=== PATIENT | male | born 1960 | race American Indian/Alaskan Native ===

== ENCOUNTER 2019-03-28 04:40 | Emergency (ER) | payer SELFPAY ==
[2019-03-28 05:26] VITALS: BP 142/95
[2019-03-28 05:41] LABS: Hematocrit 40.6 % (35.5-45.6); Hemoglobin 13.5 gm/dl (11.8-15.2); Mean Corpuscular HGB Conc 33 % (32-34); Mean Corpuscular Volume 94 fl (84-94); Platelet Count 214 K/mm3 (140-440); Red Blood Count 4.32 M/mm3 (3.65-5.03); Red Cell Distribution Width 15.3 % (13.2-15.2)
[2019-03-28 06:02] LABS: BUN/Creatinine Ratio 15; Blood Urea Nitrogen 12 mg/dL (9-20); Calcium 9.3 mg/dL (8.4-10.2); Hemolysis Index 12
[2019-03-28 06:16] LABS: INR 0.99 (0.87-1.13)
[2019-03-28 06:17] LABS: Partial Thromboplastin Time 29.3 Sec. (24.2-36.6)
--- NOTE | 2019-03-28 06:43 | XRay Report ---
CHEST 1 VIEW INDICATION / CLINICAL INFORMATION: tachycardia. COMPARISON: None available. FINDINGS: SUPPORT DEVICES: None. HEART / MEDIASTINUM: No significant abnormality. LUNGS / PLEURA: No significant pulmonary or pleural abnormality. No pneumothorax. ADDITIONAL FINDINGS: No significant additional findings. IMPRESSION: 1. No significant change Signer Name: Yuval Chang MD Signed: 03/28/2019 6:38 AM Workstation Name: [id number]
--- NOTE | 2019-03-28 06:59 | Cat Scan Report ---
Head CT without intravenous contrast INDICATION: Altered mental COMPARISON: None FINDINGS: There is mild to moderate panventricular enlargement. No hemorrhage or extra-axial fluid co llection. No edema or mass effect. 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 Portions of the sinu ses visualized are clear. No skull fracture identified. IMPRESSION: Negative head CT Automated exposure control was utilized to diminish radiation dose Signer Name: Yuval Chang MD Signed: 03/28/2019 6:55 AM Workstation Name: [id number]
[2019-03-28] MEDS ORDERED: levETIRAcetam 500 MG TAB PO ONE (07:43)
--- NOTE | 2019-03-28 08:37 | Emergency Department Report ---
ED General Adult HPI - General Chief complaint: Seizure Stated complaint: SEIZURE Time Seen by Provider: 03/28/19 06:24 Source: patient, EMS Mode of arrival: Stretcher Limitations: Physical Limitation - History of Present Illness Initial comments: This is a 58-year-old man with a history of seizure disorder. He admits to noncompliance with his seizure medicine. He also stated that he drank a bottle of beer last night as per the triage note. The overnight doctor ordered a CT of his head and a chest x-ray. He is still postictal. However he can deny any specific injury to be and follow simple commands. He has no specific complaint at the time of my encounter. -: Gradual - Related Data Previous Rx's Medication Instructions Recorded Last Taken Type levETIRAcetam [Keppra TAB] 500 mg PO BID #60 tablet 03/28/19 Unknown Rx Allergies Allergy/AdvReac Type Severity Reaction Status Date / Time No Known Allergies Allergy Unverified 03/28/19 05:15 ED Review of Systems ROS: Stated complaint: SEIZURE Other details as noted in HPI Comment: Unobtainable due to pts medical conditions (largely, the patient does not report injury) ED Past Medical Hx - Past Medical History Previous Medical History?: Yes Hx Seizures: Yes - Surgical History Past Surgical History?: Yes Additional Surgical History: abdominal sx - Social History Smoking Status: Current Every Day Smoker Substance Use Type: Alcohol - Medications Home Medications: Home Medications Medication Instructions Recorded Confirmed Last Taken Type levETIRAcetam [Keppra TAB] 500 mg PO BID #60 tablet 03/28/19 Unknown Rx ED Physical Exam - General Limitations: Altered Mental Status (postictal) General appearance: alert, in no apparent distress - Head Head exam: Present: atraumatic, normocephalic - Eye Eye exam: Present: normal appearance, PERRL, EOMI. Absent: scleral icterus - ENT ENT exam: Present: mucous membranes moist, other (chronic tongue scarring) - Neck Neck exam: Present: normal inspection. Absent: tenderness, meningismus - Respiratory Respiratory exam: Present: normal lung sounds bilaterally. Absent: respiratory distress - Cardiovascular Cardiovascular Exam: Present: regular rate, normal rhythm. Absent: systolic murmur, diastolic murmur, rubs, gallop - GI/Abdominal GI/Abdominal exam: Present: soft, normal bowel sounds. Absent: distended, tenderness, guarding, rebound, rigid - Rectal Rectal exam: Present: deferred - Extremities Exam Extremities exam: Present: normal inspection - Back Exam Back exam: Present: normal inspection - Neurological Exam Neurological exam: Present: alert, CN II-XII intact (as testable). Absent: oriented X3 (cannot specifically state location), motor sensory deficit - Psychiatric Psychiatric exam: Present: normal mood, flat affect - Skin Skin exam: Present: warm, dry, intact, normal color. Absent: rash ED Course Vital Signs 03/28/19 03/28/19 05:12 05:31 Temperature 98.3 F Pulse Rate 89 Respiratory 16 18 Rate Blood Pressure 142/95 [Right] O2 Sat by Pulse 98 98 Oximetry - Reevaluation(s) Reevaluation #1: The patient states "coal somebody to come and get me". He is appropriate for discharge. 03/28/19 09:55 ED Medical Decision Making - Lab Data Result diagrams: 03/28/19 05:18 03/28/19 05:18 Laboratory Results - last 24 hr 03/28/19 03/28/19 03/28/19 05:18 05:18 05:46 WBC 3.7 L RBC 4.32 Hgb 13.5 Hct 40.6 MCV 94 MCH 31 MCHC 33 RDW 15.3 H Plt Count 214 PT 13.2 INR 0.99 APTT 29.3 Sodium 137 Potassium 4.1 Chloride 96.7 L Carbon Dioxide 24 Anion Gap 20 BUN 12 Creatinine 0.8 Estimated GFR > 60 BUN/Creatinine Ratio 15 Glucose 95 POC Glucose Calcium 9.3 Troponin T Plasma/Serum Alcohol 03/28/19 03/28/19 03/28/19 05:46 05:46 05:57 WBC RBC Hgb Hct MCV MCH MCHC RDW Plt Count PT INR APTT Sodium Potassium Chloride Carbon Dioxide Anion Gap BUN Creatinine Estimated GFR BUN/Creatinine Ratio Glucose POC Glucose 96 Calcium Troponin T < 0.010 Plasma/Serum Alcohol < 0.01 - Radiology Data Radiology results: report reviewed (process chest x-ray or CT head), image reviewed Critical care attestation.: If time is entered above; I have spent that time in minutes in the direct care of this critically ill patient, excluding procedure time. ED Disposition Clinical Impression: Seizure, Seizure disorder Disposition: DC-01 TO HOME OR SELFCARE Is pt being admited?: No Does the pt Need Aspirin: No Condition: Stable Instructions: Recurrent Seizures Adult (ED) Additional Instructions: Follow-up in the primary care setting. I have also given U the name of a neurologist. It is essential that you take your seizure medicine. Do not driv miguel. Prescriptions: levETIRAcetam [Keppra TAB] 500 mg PO BID #60 tablet Referrals: KAVITHA JIANG MD [Staff Physician] - 3-5 Days [facility] [Provider Group] - 3-5 Days Time of Disposition: 09:57
== END 2019-03-28 11:53 | disposition home or self-care (01) ==
LOC: ED 04:40
DX: G40.909 Epilepsy, unspecified, not intractable, without status epilepticus (principal); F17.200 Nicotine dependence, unspecified, uncomplicated
CPT/HCPCS: 36415; 70450; 71045; 80048; 80320; 82962; 84484; 85027; 85610; 85730; 93005; 93010; G0480

== ENCOUNTER 2019-04-04 20:49 | Emergency (ER) | payer SELFPAY ==
--- NOTE | 2019-04-04 21:53 | Event Note ---
ED Screening Note Date of service: 04/04/19 Time: 21:51 ED Screening Note: 58 y o darell brought in by EMS cc of generalized pain stating he normally goes [place] He is a poor historian and not responding to answering questions when prompted states he walks with a walker normally no acute distress noted This initial assessment/diagnostic orders/clinical plan/treatment(s) is/are subject to change based on patients health status, clinical progression and re-assessment by fellow clinical providers in the ED. Further treatment and workup at subsequent clinical providers discretion. Patient/guardian urged not to elope from the ED as their condition may be serious if not clinically assessed and managed. Initial orders include:
--- NOTE | 2019-04-04 22:41 | Emergency Department Report ---
Chief Complaint: Pain General Stated Complaint: BODY PAIN Time Seen by Provider: 04/04/19 22:22 - HPI History of Present Illness: 58 y ann lozoya brought in by EMS cc of generalized pain stating [place] [email or web address] [place] He is a poor historian and not responding to answering questions when prompted states he walks with a walker normally no acute distress noted - Exam Vital Signs: Vital Signs 04/04/19 20:53 Temperature 97.8 F Pulse Rate 86 Respiratory 18 Rate Blood Pressure 132/95 O2 Sat by Pulse 93 Oximetry Physical Exam: Gen: alert oriented NAD Cardic: regular rate and rhythm no murmurs appreciated Resp: Clear to auscultation bilateral no wheezing no rales or rhonchi. Abdomen: Soft nontender nondistended normal bowel sounds. MSE screening note: Focused history and physical exam performed. Due to findings the following was ordered: Emleina y ann lozoya brought in by EMS cc of generalized pain stating [place] He is a poor historian and not responding to answering questions when prompted states he walks with a walker normally no acute distress noted Discussed the patient he can follow-up back at [place]. Patient can take [id number] Tylenol as needed for pain management. ED Disposition for MSE Clinical Impression: Chronic pain Disposition: DC-01 TO HOME OR SELFCARE Is pt being admited?: No Does the pt Need Aspirin: No Condition: Stable Additional Instructions: Please take [id number] Tylenol for pain management. Follow back up which he [place] providers. Referrals: [facility] [Outside] - 3-5 Days
[2019-04-05 00:04] VITALS: BP 115/79
== END 2019-04-04 23:35 | disposition home or self-care (01) ==
LOC: ED 20:49
DX: G89.29 Other chronic pain (principal)

== ENCOUNTER 2021-10-07 11:14 | Inpatient (IN) | payer SELFPAY ==
[2021-10-07] MEDS ORDERED: ALBUTEROL 2.5 MG/3 ML NEBU IH ONE (11:39)
[2021-10-07] MEDS ORDERED: SODIUM CHLORIDE 0.9% 500 ML 500 ML IV ONE (11:41)
[2021-10-07] MEDS ORDERED: levETIRAcetam 1000 MG/NS 0.75% 1,000 MG/100 ML BAG IV ONE (11:41)
--- NOTE | 2021-10-07 11:41 | Emergency Department Report ---
ED General Adult HPI - General Chief complaint: Weakness Stated complaint: RT LOWER /PAIN AND SWELLING Time Seen by Provider: 10/07/21 11:29 Source: patient, EMS (Verbal report received from emergency medical services. EMS documentation not available at time of chart dictation ), RN notes reviewed, old records reviewed Mode of arrival: Stretcher Limitations: Altered Mental Status, Physical Limitation - History of Present Illness Initial comments: The patient was evaluated in the emergency department for symptoms described in the history of present illness. He/she was evaluated in the context of the global COVID-19 pandemic, which necessitated consideration that the patient might be at risk for infection with the virus that causes COVID-19. In stitutional protocols and algorithms that pertain to the evaluation of patients at risk for COVID-19 are in a state of rapid change based on information released by regulatory bodies including the CDC and federal and state organizations. These policies and algorithms were followed during the patient's care in the emergency department. Please note that these policies, procedures and recommendations changed on a rapid basis. This is a 61-year-old gentleman. He is brought to the hospital by emergency medical services. The patient is confused, and history mostly obtained from EMS. The patient complains of right lower extremity pain, swelling, and discoloration after blunt trauma/fall approximately 3 to 4 weeks ago. He reports that he was seen at another hospital for this injury. He reports that he lives at home with his sister. He denies headache, neck pain, chest pain, abdominal pain or shortness of breath. He is somewhat confused; he believes that it is 2020 and does not know who the president is. EMS reported normal vital signs in the field, but they did not obtain an Accu-Chek. The patient indicates he has sharp right lower extremity pain, which increases with palpation and range of motion and decreases with rest. Does not radiate anywhere. He does report that he feels like the pain is so intense that his leg will give out on him when ambulating. -: days(s), week(s) Location: right, lower extremity Consistency: other Improves with: other Worsens with: other - Related Data Previous Rx's Medication Instructions Recorded Last Taken Type levETIRAcetam [Keppra TAB] 500 mg PO BID #60 tablet 03/28/19 Unknown Rx Allergies Allergy/AdvReac Type Severity Reaction Status Date / Time No Known Allergies Allergy Unverified 03/28/19 05:15 ED Review of Systems ROS: Stated complaint: RT LOWER /PAIN AND SWELLING Other details as noted in HPI Constitutional: malaise, weakness. denies: fever Eyes: denies: vision change ENT: denies: epistaxis Respiratory: denies: cough Cardiovascular: denies: chest pain Gastrointestinal: denies: abdominal pain Genitourinary: denies: dysuria Musculoskeletal: joint swelling, arthralgia, myalgia Neurological: weakness, confusion ED Past Medical Hx - Past Medical History Hx Seizures: Yes Additional medical history: Chronic Pain - Surgical History Past Surgical History?: No Additional Surgical History: abdominal sx - Social History Smoking Status: Current Every Day Smoker Substance Use Type: None - Medications Home Medications: Home Medications Medication Instructions Recorded Confirmed Last Taken Type levETIRAcetam [Keppra TAB] 500 mg PO BID #60 tablet 03/28/19 Unknown Rx ED Physical Exam - General Limitations: Altered Mental Status, Physical Limitation General appearance: in no apparent distress, anxious - Head Head exam: Present: atraumatic, normocephalic - Eye Eye exam: Present: normal appearance, EOMI, other (Visual acuity is intact to finger counting in color perception at a close distance). Absent: nystagmus - ENT ENT exam: Present: normal orophraynx, mucous membranes dry, normal external ear exam - Neck Neck exam: Present: normal inspection, full ROM. Absent: tenderness, meningismus - Respiratory Respiratory exam: Present: respiratory distress, rhonchi. Absent: rales, decreased breath sounds - Cardiovascular Cardiovascular Exam: Present: regular rate, normal rhythm, normal heart sounds. Absent: bradycardia, tachycardia, irregular rhythm, systolic murmur, diastolic murmur, rubs, gallop - GI/Abdominal GI/Abdominal exam: Present: soft. Absent: distended, tenderness, guarding, rebound, rigid, pulsatile mass - Rectal Rectal exam: Present: deferred - Extremities Exam Extremities exam: Present: full ROM, tenderness (The right ankle is tender, and there is skin wound, on the lateral aspect of the malleolus, with possible necrotic tissue. There is no streaking.), pedal edema, other (2+ pulses noted in the bilateral upper and lower extremities. The r bilateral upper extremities and left lower extremity are nontender. The pelvis is stable). Absent: normal inspection, calf tenderness - Back Exam Back exam: Present: normal inspection. Absent: tenderness, CVA tenderness (R), CVA tenderness (L), paraspinal tenderness, vertebral tenderness - Neurological Exam Neurological exam: Present: altered (The patient is awake and alert to name and location. He does not know the year. He does not know the president.), other (There is no facial droop. The tongue is midline. EOMI. 5/5 strength in 4 extremities, sensation is intact to light touch in 4 extremities) - Psychiatric Psychiatric exam: Present: flat affect - Skin Skin exam: Present: warm, other (On the right anterior and lateral lower extremity, there is a wound that is approximately 10 cm x 5 cm. There is dry tissue, without redness, pus or streaking.) ED Course Vital Signs 10/07/21 10/07/21 10/07/21 11:22 11:42 12:16 Temperature 98 F Pulse Rate 100 H Pulse Rate [ Anterior Bilateral Throughout] Respiratory 18 Rate Respiratory Rate [Anterior Bilateral Throughout] Blood Pressure 120/86 [Left] O2 Sat by Pulse 100 100 Oximetry 10/07/21 10/07/21 13:34 13:49 Temperature Pulse Rate 61 Pulse Rate [ 81 Anterior Bilateral Throughout] Respiratory 16 Rate Respiratory 17 Rate [Anterior Bilateral Throughout] Blood Pressure 147/89 [Left] O2 Sat by Pulse 96 Oximetry - Reevaluation(s) Reevaluation #1: 10/07/21 12:49 Differential diagnosis, include but not limited to: Fracture, dislocation, arthritis, osteomyelitis, myositis, pneumonia, UTI, seizure, electrolyte derang ement, thyroid derangement, toxic metabolic encephalopathy Assessment and plan: 61-year-old gentleman, with reassuring vital signs and a nonfocal motor examination who appears mildly confused, with a right lower extremity wound. Obtain CT scan of the brain, CT scan of the right lower extremity, x-ray of the chest, and appropriate laboratory studies. Start albuterol for rhonchi. He is not hypoxic at this time. He is afebrile at this time. Reassess after diagnostics have resulted. Please note that phlebotomy team is unable to obtain laboratory studies on this patient, they are having a second population health coach come by to attempt acquisition of laboratory studies, this has delayed appropriate diagnostics, disposition and throughput. Called [facility] to discuss with their orthopedics team, as EMS reported to myself that this patient is known to [facility]. However, I am not able to obtain orthope dic consultation from [facility] as they report that they are only consulting on acute lopez, traumas, and strokes. Have then reached out to [facility], have discussed with their orthopedist, and they advised that they are not able to provide orthopedic consultation, as they are not able to accept any transfers from outside facilities as they are at capacity we advised that we are only seeking phone to phone consultation at this time, but they advise on the transfer line they are not able to provide phone consultation IV access is established by the nursing team 10/07/21 14:40 CT scan of the brain is negative for acute findings. CT scan of the right lower extremity suggests cellulitis and possible osteomyelitis. Chronic fractures are appreciated. There has been interval removal of orthopedic hardware as per CT scan report. Contacted general surgery on-call, Dr. Pool. Discussed the patient's history, physical, laboratory studies and imaging studies and clinical impression. Gener al surgery will follow in consultation. Patient will require work-up and evaluation for cellulitis and osteomyelitis. Patient appears to have an infected wound. Orthopedic issues appear to be chronic. Hospital physician, Dr Ana M Capone to admit to [facility] Have also ordered a splint 10/07/21 15:04 Patient agitated, trying to leave. The patient does not have decision-making capacity. He is placed on a hold. He is medicated with haloperidol and Ativan 10/07/21 16:20 10/07/21 17:29 10/07/21 17:59 I discussed the patient's history, physical, laboratory studies and imaging studies and overall clinical impression with orthopedic physician on-call for [facility], Dr. Bloom. We are both in agreement that admission to our facility for medical optimization, antibiotics, evaluation by wound care would be reasonable, and we both agree that patient does not require emergent orthopedic consultation or intervention at this time. ED Medical Decision Making - Lab Data Result diagrams: 10/07/21 12:41 10/07/21 12:41 Vital Signs 10/07/21 10/07/21 10/07/21 11:22 11:42 12:16 Temperature 98 F Pulse Rate 100 H Respiratory 18 Rate Blood Pressure 120/86 [Left] O2 Sat by Pulse 100 100 Oximetry - EKG Data -: EKG Interpreted by Me EKG shows normal: sinus rhythm Rate: normal - EKG Data 10/07/21 12:44 The EKG is interpreted by myself at 11: 45 This is a sinus rhythm, 91 bpm. There is a left axis deviation, with a left anterior fascicular block. There are numerous T wave inversions and abnormalities. The TX intervals within normal limits. The QTC is 4 3 9 ms. There is motion artifact. This is an abnormal EKG. This is not a STEMI. 10/07/21 12:45 I am not able to access prior EKG images for comparison - Radiology Data Radiology results: pending, report reviewed, image reviewed CHEST 1 VIEW INDICATION / CLINICAL INFORMATION: ams with rhonchi STUDY TIME: 1145 COMPARISON: None available. FINDINGS: SUPPORT DEVICES: None HEART / MEDIASTINUM: No significant abnormality. LUNGS / PLEURA: Chronic appearing changes are seen bilaterally. No definite focal infiltrates are seen though stability of some of the interstitial markings is unknown. No pleural effusions noted. No pneumothorax. ADDITIONAL FINDINGS: Multiple old left rib fractures. Signer Name: Venkata Hogan MD Signed: 10/07/2021 10:57 AM Workstation Name: [id number] CT head without contrast INDICATION : Altered mental status. TECHNIQUE: Axial imaging performed from the skull apex through the skull base without the use of contrast. All CT examinations performed at this facility utilize dose modulation, iterative reconstruction or weight-based dosing, when appropriate, to reduce radiation dose to as low as reasonably achievable. The exam is significantly limited secondary to patient position and uncooperation as well as motion artifact. COMPARISON: 03/28/2019 FINDINGS: Severely limited exam. There is mild dilatation of the lateral ventricles however this is similar in appearance to 03/28/2019. There is mild diffuse cerebral atrophy. No definite acute intracranial hemorrhage is identified within the limits of the exam. The visualized paranasal sinuses are grossly clear. The orbits are grossly intact. The skull is grossly intact. IMPRESSION: Limited exam, as discussed above. No definite evidence of acute intracranial hemorrhage. Mildly dilated lateral ventricles are grossly unchanged from 03/28/2019. Signer Name: Remington Ledesma MD Signed: 10/07/2021 1:04 PM Workstation Name: [id number] [facility] [address] [id number] Cat Scan Report Signed Patient: OREN DANIELSON MR#: [id number] : 1960 Acct:[id number] Age/Sex: 61 / M ADM Date: 10/07/21 Loc: ED Attending Dr: Ordering Physician: KULDEEP RUGGIERO MD Date of Service: 10/07/21 Procedure(s): CT lower extremity RT wo con Accession Number(s): [id number] cc: KULDEEP RUGGIERO MD CT lower extremity RT wo con INDICATION / CLINICAL INFORMATION: right leg wound and pain. TECHNIQUE: CT right lower extremity without contrast All CT scans at this location are performed using CT dose reduction for ALARA by means of automated exposure control. COMPARISON: None available. FINDINGS: CT right foreleg: There is advanced tricompartmental degenerative changes of the visualized knee. There is been removal of an intramedullary alfredito and there appears to be intramedullary cement within the proximal tibial diaphysis. There is severe osteopenia of the entire right foreleg. There is residual alfredito identified within the intramedullary space of the left fibula. There is a subacute to chronic appearing comminuted fracture involving the distal tibial metaphysis with fracture margins at approximating the subcutaneous surface anteriorly. There is mixed periosteal reaction with some internal and external callus formation. A similar ununited fracture is identified within the distal left fibular metaphysis The soft tissues of the mid and distal foreleg demonstrates severe cellulitis and edema especially the anterior and lateral aspects of the distal foreleg. IMPRESSION: 1. Ununited comminuted and displaced fracture involving the distal tibial metaphysis as well as the distal most aspect of the fibula, as above. Evidence of removal of intramedullary tibial hardware. 2. Moderate to severe cellulitis involving the anterior lateral aspect of the distal foreleg near the site of fractures with evidence of an overlying wound along the lateral ankle/distal foreleg region. Underlying osteomyelitis along the fractures of the distal tibia and fibula cannot be excluded. Signer Name: Remington Ledesma MD Signed: 10/07/2021 2:01 PM Workstation Name: [id number] Transcribed By: Dictated By: Remington Ledesma MD Electronically Authenticated By: Remington Ledesma MD Signed Date/Time: 10/07/21 1401 DD/ 1356 [facility] [address] [place] [address] XRay Report Signed Patient: OREN DANIELSON MR#: [id number] : 1960 Acct:[id number] Age/Sex: 61 / M ADM Date: 10/07/21 Loc: ED Attending Dr: Ordering Physician: KULDEEP RUGGIERO MD Date of Service: 10/07/21 Procedure(s): XR tibia fibula 2V RT Accession Number(s): [id number] cc: KULDEEP RUGGIERO MD Fluoro Time In Minutes: Right foreleg 3 views INDICATION: Right foreleg pain IMPRESSION: Ununited displaced fracture involving the distal tibia and fibula. Evidence of removal of tibial hardware. Prominent soft tissue edema is identified anteriorly concerning for underlying cellulitis. Signer Name: Remington Ledesma MD Signed: 10/07/2021 3:35 PM Workstation Name: [id number] Transcribed By: BC Dictated By: Remington Ledesma MD Electronically Authenticated By: Remington Ledesma MD Signed Date/Time: 10/07/211534 DD/ 153 TD/TT: Critical care attestation.: If time is entered above; I have spent that time in minutes in the direct care of this critically ill patient, excluding procedure time. ED Disposition Clinical Impression: Acute encephalopathy, Wound of right leg, Falls Disposition: 09 ADMITTED INPATIENT Is pt being admited?: Yes Does the pt Need Aspirin: No Condition: Fair Referrals: PRIMARY CARE, [Primary Care Provider] - 3-5 Days
--- NOTE | 2021-10-07 12:02 | XRay Report ---
CHEST 1 VIEW INDICATION / CLINICAL INFORMATION: ams with rhonchi STUDY TIME: 1145 COMPARISON: None available. FINDINGS: SUPPORT DEVICES: None HEART / MEDIASTINUM: No significant abnormality. LUNGS / PLEURA: Chronic appearing changes are seen bilaterally. No definite focal infiltrates are see n though stability of some of the interstitial markings is unknown. No pleural effusions noted. No pn eumothorax. ADDITIONAL FINDINGS: Multiple old left rib fractures. Signer Name: Venkata Hogan MD Signed: 10/07/2021 11:57 AM Workstation Name: [id number]
[2021-10-07 13:18] LABS: INR 1.01 (0.87-1.13)
[2021-10-07 13:20] LABS: Basophils # (Auto) 0.1 K/mm3 (0.0-0.1); Basophils % (Auto) 0.9 % (0.0-1.8); Eosinophils % (Auto) 0.8 % (0.0-4.3); Hematocrit 31.9 % (35.5-45.6); Hemoglobin 9.8 gm/dl (11.8-15.2); Lymphocytes # (Auto) 1.8 K/mm3 (1.2-5.4); Lymphocytes % (Auto) 30.2 % (13.4-35.0); Mean Corpuscular HGB Conc 31 % (32-34); Mean Corpuscular Volume 76 fl (84-94); Monocytes % (Auto) 15.7 % (0.0-7.3); Platelet Count 333 K/mm3 (140-440); Red Blood Count 4.23 M/mm3 (3.65-5.03)
[2021-10-07 13:24] LABS: Red Cell Distribution Width 21.9 % (13.2-15.2)
[2021-10-07 13:39] LABS: Alanine Aminotransferase 10 units/L (7-56); Albumin 4.1 g/dL (3.9-5); BUN/Creatinine Ratio 23; Blood Urea Nitrogen 18 mg/dL (9-20); Calcium 9.8 mg/dL (8.4-10.2); Hemolysis Index 0
[2021-10-07] MEDS ORDERED: SODIUM CHLORIDE 0.9% 1000 ML 1,000 ML IV ONE (13:40)
[2021-10-07 13:44] LABS: Erythrocyte Sedimentation Rate 44 mm/Hr (0-20)
--- NOTE | 2021-10-07 14:06 | Cat Scan Report ---
CT lower extremity RT wo con INDICATION / CLINICAL INFORMATION: right leg wound and pain. TECHNIQUE: CT right lower extremity without contrast All CT scans at this location are performed using CT dose r eduction for MARY by means of automated exposure control. COMPARISON: None available. FINDINGS: CT right foreleg: There is advanced tricompartmental degenerative changes of the visualized knee. There is been removal of an intramedullary alfredito and there appears to be intramedullary cement within the proximal tibial di aphysis. There is severe osteopenia of the entire right foreleg. There is residual alfredito identified wit hin the intramedullary space of the left fibula. There is a subacute to chronic appearing comminuted fracture involving the distal tibial metaphysis with fracture margins at approximating the subcutaneo us surface anteriorly. There is mixed periosteal reaction with some internal and external callus form ation. A similar ununited fracture is identified within the distal left fibular metaphysis The soft tissues of the mid and distal foreleg demonstrates severe cellulitis and edema especially th e anterior and lateral aspects of the distal foreleg. IMPRESSION: 1. Ununited comminuted and displaced fracture involving the distal tibial metaphysis as well as the d istal most aspect of the fibula, as above. Evidence of removal of intramedullary tibial hardware. 2. Moderate to severe cellulitis involving the anterior lateral aspect of the distal foreleg near the site of fractures with evidence of an overlying wound along the lateral ankle/distal foreleg region. Underlying osteomyelitis along the fractures of the distal tibia and fibula cannot be excluded. Signer Name: Remington Ledesma MD Signed: 10/07/2021 2:01 PM Workstation Name: [id number]
--- NOTE | 2021-10-07 14:08 | Cat Scan Report ---
CT head without contrast INDICATION : Altered mental status. TECHNIQUE: Axial imaging performed from the skull apex through the skull base without the use of con trast. All CT examinations performed at this facility utilize dose modulation, iterative reconstruct ion or weight-based dosing, when appropriate, to reduce radiation dose to as low as reasonably achiev able. The exam is significantly limited secondary to patient position and uncooperation as well as mo tion artifact. COMPARISON: 03/28/2019 FINDINGS: Severely limited exam. There is mild dilatation of the lateral ventricles however this is s imilar in appearance to 03/28/2019. There is mild diffuse cerebral atrophy. No definite acute intracr anial hemorrhage is identified within the limits of the exam. The visualized paranasal sinuses are gr ossly clear. The orbits are grossly intact. The skull is grossly intact. IMPRESSION: Limited exam, as discussed above. No definite evidence of acute intracranial hemorrhage. Mildly dilated lateral ventricles are grossly unchanged from 03/28/2019. Signer Name: Remington Ledesma MD Signed: 10/07/2021 2:04 PM Workstation Name: [email or web address]
[2021-10-07] MEDS ORDERED: fentaNYL 100 MCG/2 ML INJ IV ONE (14:19)
[2021-10-07] MEDS ORDERED: ceFAZolin/NS 1 GM/50 ML 1 GM/50 ML BAG IV ONE (14:19)
[2021-10-07 14:56] LABS: Bilirubin,Urine NEG (Negative); Blood,Urine LG (Negative); Color,Urine Yellow (Yellow); Protein,Urine <15 mg/dL mg/dL (Negative); Urobilinogen,Urine < 2.0 mg/dL (<2.0)
[2021-10-07] MEDS ORDERED: VANCOMYCIN 1,250 MG in SODIUM CHLORIDE 0.9% 500 ML 500 ML IV ONE (15:00)
[2021-10-07] MEDS: LORazepam 2 MG/ML VIAL IM PRN ×2 (15:10→19:35)
[2021-10-07] MEDS: HALOPERIDOL LACTATE 5 MG/1 ML INJ IM PRN (15:11)
[2021-10-07 15:20] LABS: Amphetamine Screen,Urine Negative; Benzodiazepines Screen,Urine Negative; Cannabinoid Screen,Urine Negative; Cocaine Screen,Urine Negative; Methadone Screen,Urine Negative; Opiate Screen,Urine Negative
--- NOTE | 2021-10-07 15:39 | XRay Report ---
Right foreleg 3 views INDICATION: Right foreleg pain IMPRESSION: Ununited displaced fracture involving the distal tibia and fibula. Evidence of removal of tibial hardware. Prominent soft tissue edema is identified anteriorly concerning for underlying cell ulitis. Signer Name: Remington Ledesma MD Signed: 10/07/2021 3:35 PM Workstation Name: [email or web address]
[2021-10-07 15:57] LABS: RBC,Urine < 1.0 /HPF (0.0-6.0)
--- NOTE | 2021-10-07 17:14 | Consultation ---
History of Present Illness Consult date: 10/07/21 Reason for consult: other (Right ankle and foot pain with no overlying chronic wound.) - History of present illness History of present illness: This is a 61-year-old gentleman. He is brought to the hospital by emergency medical services. The patient is confused, and history mostly obtained from the ER records and EMS. The patient complains of right lower extremity pain, swelling, and discoloration after blunt trauma/fall approximately 3 to 4 weeks ago. He reports that he was seen at another hospital ([facility]) for this injury. He reports that he lives at home with his sister. He denies headache, neck pain, chest pain, abdominal pain or shortness of breath. He is somewhat confused; he believes that it is 2020 and does not know who the president is. The patient indicates he has sharp right lower extremity pain, which increases with palpation and range of motion and decreases with rest. Does not radiate anywhere. He does report that he feels like the pain is so intense that his leg will give out on him when ambulating. Medications and Allergies Allergies Allergy/AdvReac Type Severity Reaction Status Date / Time No Known Allergies Allergy Unverified 03/28/19 05:15 Home Medications Medication Instructions Recorded Confirmed Last Taken Type levETIRAcetam [Keppra TAB] 500 mg PO BID #60 tablet 03/28/19 Unknown Rx Active Meds: Active Medications Haloperidol Lactate (Haloperidol Lactate 5 Mg/1 Ml Inj) 5 mg IM Q6HR PRN PRN Reason: Agitation Last Admin: 10/07/21 15:11 Dose: 5 mg Lorazepam (Lorazepam 2 Mg/Ml Vial) 2 mg IM Q4HR PRN PRN Reason: Agitation Last Admin: 10/07/21 15:10 Dose: 2 mg Exam Vital Signs Pulse Resp BP Pulse Ox 100 H 18 120/86 100 10/07/21 11:22 10/07/21 11:22 10/07/21 11:22 10/07/21 11:22 - General physical appearance Positive: other (Patient is heavily sedated unable to answer questions.) - Neck Positive: no masses, no bruits, trachea midline - Respiratory Positive: normal expansion - Cardiovascular Rhythm: regular - Extremities Extremities: abnormal (Marked angulation is noted just above the ankle. No crepitus is noted.) - Abdomen Abdomen: Present: soft. Absent: tender - Integumentary other (An open wound with overlying eschar and scab is present on the lateral aspect of the lower leg over the lateral malleolus. Depth of the wound is difficult to assess.) Results - Labs 10/07/21 12:41 10/07/21 12:41 Abnormal lab results 10/07/21 10/07/21 10/07/21 Range/Units 12:41 12:41 12:41 Hgb 9.8 L (11.8-15.2) gm/dl Hct 31.9 L (35.5-45.6) % MCV 76 L (84-94) fl MCH 23 L (28-32) pg MCHC 31 L (32-34) % RDW 21.9 H (13.2-15.2) % [place] % (Auto) 15.7 H (0.0-7.3) % [place] # (Auto) 1.0 H (0.0-0.8) K/mm3 Sodium 135 L (137-145) mmol/L Ammonia 19.0 L (25-60) umol/L Total Creatine Kinase (55-170) units/L Salicylates (2.8-20.0) mg/dL Acetaminophen (10.0-30.0) ug/mL 10/07/21 10/07/21 10/07/21 Range/Units 12:41 12:41 12:41 Hgb (11.8-15.2) gm/dl Hct (35.5-45.6) % MCV (84-94) fl MCH (28-32) pg MCHC (32-34) % RDW (13.2-15.2) % [place] % (Auto) (0.0-7.3) % [place] # (Auto) (0.0-0.8) K/mm3 Sodium (137-145) mmol/L Ammonia (25-60) umol/L Total Creatine Kinase 377 H (55-170) units/L Salicylates < 0.3 L (2.8-20.0) mg/dL Acetaminophen 5.0 L (10.0-30.0) ug/mL Diabetes panel 10/07/21 Range/Units 12:41 Sodium 135 L (137-145) mmol/L Potassium 4.4 (3.6-5.0) mmol/L Chloride 99.7 (98-107) mmol/L Carbon Dioxide 26 (22-30) mmol/L BUN 18 (9-20) mg/dL Creatinine 0.8 (0.8-1.3) mg/dL Glucose 88 (75-100) mg/dL Calcium 9.8 (8.4-10.2) mg/dL AST 15 (5-40) units/L ALT 10 (7-56) units/L Alkaline Phosphatase 81 (35-129) units/L Total Protein 8.1 (6.3-8.2) g/dL Albumin 4.1 (3.9-5) g/dL Thyroid panel 10/07/21 Range/Units 12:41 TSH 0.692 (0.270-4.200) mlU/mL Calcium panel 10/07/21 Range/Units 12:41 Calcium 9.8 (8.4-10.2) mg/dL Albumin 4.1 (3.9-5) g/dL Pituitary panel 10/07/21 10/07/21 Range/Units 12:41 12:41 Sodium 135 L (137-145) mmol/L Potassium 4.4 (3.6-5.0) mmol/L Chloride 99.7 (98-107) mmol/L Carbon Dioxide 26 (22-30) mmol/L BUN 18 (9-20) mg/dL Creatinine 0.8 (0.8-1.3) mg/dL Glucose 88 (75-100) mg/dL Calcium 9.8 (8.4-10.2) mg/dL TSH 0.692 (0.270-4.200) mlU/mL Adrenal panel 10/07/21 Range/Units 12:41 Sodium 135 L (137-145) mmol/L Potassium 4.4 (3.6-5.0) mmol/L Chloride 99.7 (98-107) mmol/L Carbon Dioxide 26 (22-30) mmol/L BUN 18 (9-20) mg/dL Creatinine 0.8 (0.8-1.3) mg/dL Glucose 88 (75-100) mg/dL Calcium 9.8 (8.4-10.2) mg/dL Total Bilirubin 0.30 (0.1-1.2) mg/dL AST 15 (5-40) units/L ALT 10 (7-56) units/L Alkaline Phosphatase 81 (35-129) units/L Total Protein 8.1 (6.3-8.2) g/dL Albumin 4.1 (3.9-5) g/dL Assessment and Plan This patient has definite changes to his distal fibula and tibia. Review of the x-ray shows there to be a comminuted fracture of the distal tibia and fibula definitely involving the mortise of the ankle. Difficult to discern if this is an open fracture but there is a definite chronic wound in the vicinity of the fracture. Posterior splint immobilization with Betadine soaked gauze for dressing at this time. Consult orthopedics when available. Try to obtain records from [facility] as soon as possible.
[2021-10-07] MEDS ORDERED: ONDANSETRON 4 MG/2 ML INJ IV PRN (19:26)
[2021-10-07] MEDS ORDERED: MORPHINE 2 MG/1 ML INJ IV PRN (19:26)
--- NOTE | 2021-10-07 19:49 | History and Physical Report ---
History of Present Illness Date of examination: 10/07/21 Date of admission: 10/07/2021 Chief complaint: Right ankle wound for 2 weeks History of present illness: 61-year-old man with history of seizures had a fall about 3 to 4 weeks ago. Patient went to [facility] for treatment of his injury to the right ankle. He had a right ankle ulcer. With treatment by other hospital with dressings and antibiotics. Patient's right ankle wound has been worsening and swelling increasing in the right foot and also of the ankle and distal to lower extremity. No radiation of the pain. Pain is about 8 on a scale of 1-10. No discharge. But dark appearing wound with pain. Low-grade fever present. Blunt trauma for which 3 to 4 weeks ago. Patient is somewhat confused. No exacerbating or relieving factors. Pain is sharp and intermittent in nature. - Past Medical History Hx Seizures: Yes Additional medical history: Chronic Pain - Surgical History Past Surgical History?: No Additional Surgical History: abdominal sx - Social History Smoking Status: Current Every Day Smoker Substance Use Type: None Family history Htn - Medications Home Medications: Home Medications Medication Instructions Recorded Confirmed Last Taken Type levETIRAcetam [Keppra TAB] 500 mg PO BID #60 tablet 03/28/19 Unknown Rx Review of systems ROS constitutional no weight loss or weight gain no fever or chills HEENT no sore throat no post nasal drip no diplopia Neck no neck stiffness no lymph gland enlargement Chest and lungs no shortness of breath cough or wheezing CVS no chest pain no diaphoresis no palpitations GI no nausea no vomiting no diarrhea Genitourinary system no dysuria no flank pain Musculoskeletal system no muscle pains no joint pains [employer] S[employer] no syncope no seizures Skin no rash no itching Psychiatric no depression no homicidal or suicidal tendencies Hematologic no lymphedema or bruising Endocrine no polydipsia no polyuria no cold intolerance no heat intolerance Medications and Allergies Allergies Allergy/AdvReac Type Severity Reaction Status Date / Time No Known Allergies Allergy Unverified 03/28/19 05:15 Home Medications Medication Instructions Recorded Confirmed Last Taken Type levETIRAcetam [Keppra TAB] 500 mg PO BID #60 tablet 03/28/19 Unknown Rx Active Meds: Active Medications Haloperidol Lactate (Haloperidol Lactate 5 Mg/1 Ml Inj) 5 mg IM Q6HR PRN PRN Reason: Agitation Last Admin: 10/07/21 15:11 Dose: 5 mg Lorazepam (Lorazepam 2 Mg/Ml Vial) 2 mg IM Q4HR PRN PRN Reason: Agitation Last Admin: 10/07/21 15:10 Dose: 2 mg Exam - Constitutional Vitals: Temp Pulse Resp BP Pulse Ox 98 F 81 17 147/89 96 10/07/21 12:16 10/07/21 13:49 10/07/21 13:49 10/07/21 13:34 10/07/21 13:34 General appearance: Present: no acute distress, well-nourished - EENT Eyes: Present: PERRL ENT: hearing intact, clear oral mucosa - Neck Neck: Present: supple, normal ROM - Respiratory Respiratory effort: normal Respiratory: bilateral: CTA - Cardiovascular Heart rate: 78 Rhythm: regular Heart Sounds: Present: S1 & S2. Absent: rub, click - Extremities Extremities: pulses symmetrical, No edema, abnormal (Right ankle wound 10 cm x 6 cm stage II-III no purulent discharge dark discoloration and surrounding swelling) Extremity abnormal: other ( present as above) Peripheral Pulses: within normal limits - Abdominal General gastrointestinal: Present: soft, non-tender, non-distended, normal bowel sounds Male genitourinary: Present: normal - Integumentary Integumentary: Present: clear, warm, dry - Musculoskeletal Musculoskeletal: strength equal bilaterally, other - Psychiatric Psychiatric: other (Alert but confused) - Neurologic Neurologic: CNII-XII intact, moves all extremities - Allied Health Allied health notes reviewed: nursing (Alert but confused), case management HEART Score - HEART Score Troponin: Troponin T < 0.010 ng/mL (0.00-0.029) 10/07/21 12:41 Results - Labs CBC & Chem 7: 10/07/21 12:41 10/07/21 12:41 Labs: Laboratory Last Values WBC 6.1 K/mm3 (4.5-11.0) 10/07/21 12:41 RBC 4.23 M/mm3 (3.65-5.03) 10/07/21 12:41 Hgb 9.8 gm/dl (11.8-15.2) L 10/07/21 12:41 Hct 31.9 % (35.5-45.6) L 10/07/21 12:41 MCV 76 fl (84-94) L 10/07/21 12:41 MCH 23 pg (28-32) L 10/07/21 12:41 MCHC 31 % (32-34) L 10/07/21 12:41 RDW 21.9 % (13.2-15.2) H 10/07/21 12:41 Plt Count 333 K/mm3 (140-440) 10/07/21 12:41 Lymph % (Auto) 30.2 % (13.4-35.0) 10/07/21 12:41 [place] % (Auto) 15.7 % (0.0-7.3) H 10/07/21 12:41 Eos % (Auto) 0.8 % (0.0-4.3) 10/07/21 12:41 Baso % (Auto) 0.9 % (0.0-1.8) 10/07/21 12:41 Lymph # (Auto) 1.8 K/mm3 (1.2-5.4) 10/07/21 12:41 [place] # (Auto) 1.0 K/mm3 (0.0-0.8) H 10/07/21 12:41 Eos # (Auto) 0.0 K/mm3 (0.0-0.4) 10/07/21 12:41 Baso # (Auto) 0.1 K/mm3 (0.0-0.1) 10/07/21 12:41 Seg Neutrophils % 52.4 % (40.0-70.0) 10/07/21 12:41 Seg Neutrophils # 3.2 K/mm3 (1.8-7.7) 10/07/21 12:41 ESR 44 mm/Hr (0-20) 10/07/21 12:41 PT 14.7 Sec. (12.2-14.9) 10/07/21 12:41 INR 1.01 (0.87-1.13) 10/07/21 12:41 APTT 35.0 Sec. (24.2-36.6) 10/07/21 12:41 Sodium 135 mmol/L (137-145) L 10/07/21 12:41 Potassium 4.4 mmol/L (3.6-5.0) 10/07/21 12:41 Chloride 99.7 mmol/L (98-107) 10/07/21 12:41 Carbon Dioxide 26 mmol/L (22-30) 10/07/21 12:41 Anion Gap 14 mmol/L 10/07/21 12:41 BUN 18 mg/dL (9-20) 10/07/21 12:41 Creatinine 0.8 mg/dL (0.8-1.3) 10/07/21 12:41 Estimated GFR > 60 ml/min 10/07/21 12:41 BUN/Creatinine Ratio 23 % 10/07/21 12:41 Glucose 88 mg/dL (75-100) 10/07/21 12:41 Lactic Acid 1.40 mmol/L (0.7-2.0) 10/07/21 12:41 Calcium 9.8 mg/dL (8.4-10.2) 10/07/21 12:41 Total Bilirubin 0.30 mg/dL (0.1-1.2) 10/07/21 12:41 AST 15 units/L (5-40) 10/07/21 12:41 ALT 10 units/L (7-56) 10/07/21 12:41 Alkaline Phosphatase 81 units/L (35-129) 10/07/21 12:41 Ammonia 19.0 umol/L (25-60) L 10/07/21 12:41 Total Creatine Kinase 377 units/L (55-170) H 10/07/21 12:41 Troponin T < 0.010 ng/mL (0.00-0.029) 10/07/21 12:41 C-Reactive Protein < 0.03 mg/dL (0.00-1.30) 10/07/21 12:41 Total Protein 8.1 g/dL (6.3-8.2) 10/07/21 12:41 Albumin 4.1 g/dL (3.9-5) 10/07/21 12:41 Albumin/Globulin Ratio 1.0 % 10/07/21 12:41 TSH 0.692 mlU/mL (0.270-4.200) 10/07/21 12:41 Urine Color Yellow (Yellow) 10/07/21 12:16 Urine Turbidity Clear (Clear) 10/07/21 12:16 Urine pH 6.0 (5.0-7.0) 10/07/21 12:16 Ur Specific [place] 1.018 (1.003-1.030) 10/07/21 12:16 Urine Protein <15 mg/dl mg/dL (Negative) 10/07/21 12:16 Urine Glucose (UA) Neg mg/dL (Negative) 10/07/21 12:16 Urine Ketones Neg mg/dL (Negative) 10/07/21 12:16 Urine Blood Lg (Negative) 10/07/21 12:16 Urine Nitrite Neg (Negative) 10/07/21 12:16 Urine Bilirubin Neg (Negative) 10/07/21 12:16 Urine Urobilinogen < 2.0 mg/dL (<2.0) 10/07/21 12:16 Ur Leukocyte Esterase Neg (Negative) 10/07/21 12:16 Urine WBC (Auto) 0.0 /HPF (0.0-6.0) 10/07/21 12:16 Urine RBC (Auto) < 1.0 /HPF (0.0-6.0) 10/07/21 12:16 Salicylates < 0.3 mg/dL (2.8-20.0) L 10/07/21 12:41 Urine Opiates Screen Negative 10/07/21 12:16 Urine Methadone Screen Negative 10/07/21 12:16 Acetaminophen 5.0 ug/mL (10.0-30.0) L 10/07/21 12:41 Ur Barbiturates Screen Negative 10/07/21 12:16 Ur Phencyclidine Scrn Negative 10/07/21 12:16 Ur Amphetamines Screen Negative 10/07/21 12:16 U Benzodiazepines Scrn Negative 10/07/21 12:16 Urine Cocaine Screen Negative 10/07/21 12:16 U Marijuana (THC) Screen Negative 10/07/21 12:16 Drugs of Abuse Note Disclamer 10/07/21 12:16 Plasma/Serum Alcohol < 0.01 % (0-0.07) 10/07/21 12:41 - Imaging and Cardiology Imaging and Cardiology: Chest x-ray No acute findings multiple old rib fractures on the left side head CT No definitive evidence of intracranial hemorrhage mildly dilated lateral ventricles are grossly unchanged from 03/28/2019 CT of the lower extremity of the right lower extremity And united comminuted and displaced fracture involving the distal tibial metaphysis as well as the distal most aspect of the fibula as above evidence of removal of intramedullary tibial hardware. Moderate to severe cellulitis involving the anterior lateral aspect of the distal foreleg near the site of the fractures with evidence of an overlying wo und along the lateral ankle/distal foreleg region. Underlying osteomyelitis along the physis of the distal tibia and fibula cannot be excluded. Assessment and Plan Advance Directives: Yes (Full code) Plan of care discussed with patient/family: Yes - Patient Problems (1) Acute encephalopathy Current Visit: Yes Status: Acute Plan to address problem: Secondary to sepsis and bacteremia IV Unasyn and IV vancomycin (2) Cellulitis of right leg Current Visit: Yes Status: Acute Plan to address problem: IV Unasyn and IV vancomycin (3) Fracture of distal end of right tibia Current Visit: Yes Status: Acute (4) Fracture of distal end of right tibia Current Visit: Yes Status: Chronic Qualifiers: Encounter type: initial encounter Fracture type: closed Plan to address problem: Hardware was removed Ortho consult requested (5) Ulcer of right ankle Current Visit: Yes Status: Acute Plan to address problem: May need debridement Surgery consulted IV Unasyn and IV vancomycin (6) Seizure disorder Current Visit: Yes Status: Chronic Plan to address problem: Keppra increased to 750 mg p.o. twice a day (7) Anemia Current Visit: Yes Status: Chronic Qualifiers: Anemia type: iron deficiency Plan to address problem: Patient appears to be iron deficient and anemic Anemia work-up Iron studies and folic acid and B12 studies (8) DVT prophylaxis Current Visit: Yes Status: Acute Plan to address problem: On Lovenox and GI prophylaxis (9) Advance care planning Current Visit: Yes Status: Acute (10) Advance care planning Current Visit: Yes Status: Acute Plan to address problem: Disease education conducted, care plan discussed, diagnosis discussed. Prognosis discussed. Patient is full code. Patient acknowledges understanding and agreement with care plan. +30 minutes.
[2021-10-07] MEDS ORDERED: VANCOMYCIN PHARMACY TO DOSE IV SCH (20:00)
[2021-10-07] MEDS: FAMOTIDINE 20 MG TAB PO SCH (23:19)
[2021-10-07] MEDS: AMPICILLIN/SULBACTA 3GM/100ML 3 GM/100 ML BAG IV SCH (23:19)
[2021-10-07] MEDS: levETIRAcetam 500 MG TAB PO SCH (23:19)
[2021-10-07] MEDS: HEPARIN 5,000 UNIT/1 ML VIAL SUB-Q SCH (23:20)
[2021-10-08] MEDS: LORazepam 2 MG/ML VIAL IM PRN ×3 (01:56→20:17)
[2021-10-08] MEDS: AMPICILLIN/SULBACTA 3GM/100ML 3 GM/100 ML BAG IV SCH ×4 (05:06→21:36)
[2021-10-08] MEDS: VANCOMYCIN/NS 1 GM/250 ML 1 GM/250 ML BAG IV SCH ×2 (05:06→18:47)
[2021-10-08] MEDS: SODIUM CHLORIDE 0.9% 1000 ML 1,000 ML IV SCH (05:07)
[2021-10-08 05:21] LABS: Hematocrit 28.4 % (35.5-45.6); Hemoglobin 8.7 gm/dl (11.8-15.2); Mean Corpuscular HGB Conc 31 % (32-34); Mean Corpuscular Volume 75 fl (84-94); Platelet Count 306 K/mm3 (140-440); Red Blood Count 3.77 M/mm3 (3.65-5.03)
[2021-10-08 05:23] LABS: Red Cell Distribution Width 21.7 % (13.2-15.2)
[2021-10-08 05:43] LABS: % Iron Saturation 7.99 %; Alanine Aminotransferase 10 units/L (7-56); Albumin 3.7 g/dL (3.9-5); BUN/Creatinine Ratio 20; Blood Urea Nitrogen 16 mg/dL (9-20); Calcium 9.6 mg/dL (8.4-10.2); Hemolysis Index 0
[2021-10-08 06:18] LABS: Anisocytosis 1+; Basophils % (Manual) 0 % (0.0-1.8); Hypochromasia 1+; Total Cells Counted 100
[2021-10-08 06:20] LABS: Ovalocytes Rare; Platelet Estimate Consistent w Auto; Target Cells Rare
[2021-10-08] MEDS: levETIRAcetam 500 MG TAB PO SCH ×3 (08:09→21:37)
[2021-10-08] MEDS: FAMOTIDINE 20 MG TAB PO SCH ×3 (08:09→21:37)
[2021-10-08] MEDS: HEPARIN 5,000 UNIT/1 ML VIAL SUB-Q SCH ×3 (08:10→21:36)
--- NOTE | 2021-10-08 08:10 | Progress Note ---
Assessment and Plan This patient has definite changes to his distal fibula and tibia. Review of the x-ray shows there to be a comminuted fracture of the distal tibia and fibula definitely involving the mortise of the ankle. Difficult to discern if this is an open fracture but there is a definite chronic wound in the vicinity of the fracture. Posterior splint immobilization with Betadine soaked gauze for dressing at this time. Consult orthopedics when available. Try to obtain records from [facility] as soon as possible. Subjective Patient Reports: Positive: still having pain Narrative: Patient with complex comminuted fracture of extremity awaiting orthopedic evaluation consultation. Associated soft tissue. Being managed with local wound care for the time being. Continue IV antibiotics for now. Patient also with iron deficiency anemia. To reach out to family for more definitive past medical history. Objective Vital Signs - 12hr 10/07/21 10/07/21 10/07/21 21:19 21:20 21:30 Temperature Pulse Rate Respiratory Rate Blood Pressure 130/81 130/81 130/81 O2 Sat by Pulse 78 L 92 Oximetry 10/07/21 10/07/21 10/07/21 21:40 21:51 22:01 Temperature Pulse Rate Respiratory Rate Blood Pressure 130/81 115/90 115/90 O2 Sat by Pulse 94 94 98 Oximetry 10/07/21 10/07/21 10/07/21 22:10 22:20 22:31 Temperature Pulse Rate Respiratory Rate Blood Pressure 115/90 115/90 115/90 O2 Sat by Pulse 100 96 96 Oximetry 10/07/21 10/07/21 10/07/21 22:41 22:51 23:01 Temperature Pulse Rate Respiratory Rate Blood Pressure 115/90 132/84 132/84 O2 Sat by Pulse 95 95 95 Oximetry 10/07/21 10/07/21 10/07/21 23:11 23:21 23:31 Temperature Pulse Rate Respiratory Rate Blood Pressure 132/84 132/84 132/84 O2 Sat by Pulse 95 95 97 Oximetry 10/07/21 10/07/21 10/08/21 23:41 23:51 00:01 Temperature Pulse Rate Respiratory Rate Blood Pressure 132/84 132/84 132/84 O2 Sat by Pulse 94 93 96 Oximetry 10/08/21 10/08/21 10/08/21 00:11 00:21 00:31 Temperature Pulse Rate Respiratory Rate Blood Pressure 132/84 132/84 132/84 O2 Sat by Pulse 93 96 97 Oximetry 10/08/21 10/08/21 10/08/21 00:41 00:51 01:01 Temperature Pulse Rate Respiratory Rate Blood Pressure 132/84 132/84 132/84 O2 Sat by Pulse 95 94 97 Oximetry 10/08/21 10/08/21 01:43 02:30 Temperature 98.3 F Pulse Rate 72 Respiratory 18 20 Rate Blood Pressure 103/65 O2 Sat by Pulse 93 93 Oximetry - Labs 10/08/21 04:57 10/08/21 04:57 Diabetes panel 10/07/21 10/08/21 Range/Units 12:41 04:57 Sodium 135 L 136 L (137-145) mmol/L Potassium 4.4 3.8 (3.6-5.0) mmol/L Chloride 99.7 101.8 (98-107) mmol/L Carbon Dioxide 26 25 (22-30) mmol/L BUN 18 16 (9-20) mg/dL Creatinine 0.8 0.8 (0.8-1.3) mg/dL Glucose 88 87 (75-100) mg/dL Calcium 9.8 9.6 (8.4-10.2) mg/dL AST 15 19 (5-40) units/L ALT 10 10 (7-56) units/L Alkaline Phosphatase 81 73 (35-129) units/L Total Protein 8.1 7.4 (6.3-8.2) g/dL Albumin 4.1 3.7 L (3.9-5) g/dL Thyroid panel 10/07/21 Range/Units 12:41 TSH 0.692 (0.270-4.200) mlU/mL Calcium panel 10/07/21 10/08/21 Range/Units 12:41 04:57 Calcium 9.8 9.6 (8.4-10.2) mg/dL Albumin 4.1 3.7 L (3.9-5) g/dL Pituitary panel 10/07/21 10/07/21 10/08/21 Range/Units 12:41 12:41 04:57 Sodium 135 L 136 L (137-145) mmol/L Potassium 4.4 3.8 (3.6-5.0) mmol/L Chloride 99.7 101.8 (98-107) mmol/L Carbon Dioxide 26 25 (22-30) mmol/L BUN 18 16 (9-20) mg/dL Creatinine 0.8 0.8 (0.8-1.3) mg/dL Glucose 88 87 (75-100) mg/dL Calcium 9.8 9.6 (8.4-10.2) mg/dL TSH 0.692 (0.270-4.200) mlU/mL Adrenal panel 10/07/21 10/08/21 Range/Units 12:41 04:57 Sodium 135 L 136 L (137-145) mmol/L Potassium 4.4 3.8 (3.6-5.0) mmol/L Chloride 99.7 101.8 (98-107) mmol/L Carbon Dioxide 26 25 (22-30) mmol/L BUN 18 16 (9-20) mg/dL Creatinine 0.8 0.8 (0.8-1.3) mg/dL Glucose 88 87 (75-100) mg/dL Calcium 9.8 9.6 (8.4-10.2) mg/dL Total Bilirubin 0.30 0.30 (0.1-1.2) mg/dL AST 15 19 (5-40) units/L ALT 10 10 (7-56) units/L Alkaline Phosphatase 81 73 (35-129) units/L Total Protein 8.1 7.4 (6.3-8.2) g/dL Albumin 4.1 3.7 L (3.9-5) g/dL
--- NOTE | 2021-10-08 09:19 | Progress Note ---
Assessment and Plan Assessment and plan: 61-year-old man with history of seizures had a fall about 3 to 4 weeks ago. Patient went to [facility] for treatment of his injury to the right ankle. He had a right ankle ulcer. With treatment by other hospital with dressings and antibiotics. Patient's right ankle wound has been worsening and swelling increasing in the right foot and also of the ankle and distal to lower extremity Right lower extremity cellulitis Sepsis. The patient meets criteria given the tachycardia, altered mentation and diagnosis of cellulitis. Toxic metabolic encephalopathy. Seizure disorder. Right tibia distal fracture. Right ankle ulcer. Anemia. 10/08/2021. Continue IV antibiotics. Follow-up cultures. X-rays revealed a comminuted fracture of the distal tibia and fibula definitely involving the mort ise of the ankle. Surgery reports that it is difficult to discern if this is an open fracture but there is a definite chronic wound in the vicinity of the fracture. Consult orthopedics for further evaluation. Posterior splint immobilization with Betadine soaked gauze for dressing at this time. Try to obtain records from [facility] as soon as possible. History Interval history: No new issues overnight Hospitalist Physical - Constitutional Vitals: Temp Pulse Resp BP Pulse Ox 98.3 F 72 20 103/65 93 10/08/21 01:43 10/08/21 01:43 10/08/21 02:30 10/08/21 01:43 10/08/21 02:30 General appearance: Present: no acute distress, well-nourished - EENT Eyes: Present: PERRL, EOM intact ENT: hearing intact, clear oral mucosa, dentition normal - Neck Neck: Present: supple, normal ROM - Respiratory Respiratory effort: normal Respiratory: bilateral: CTA - Cardiovascular Rhythm: regular Heart Sounds: Present: S1 & S2. Absent: gallop, rub - Extremities Extremities: no ischemia, No edema, Full ROM - Abdominal General gastrointestinal: soft, non-tender, non-distended, normal bowel sounds - Integumentary Integumentary: Present: clear, warm, dry - Neurologic Neurologic: CNII-XII intact, moves all extremities HEART Score - HEART Score Troponin: Troponin T < 0.010 ng/mL (0.00-0.029) 10/07/21 12:41 Results - Labs CBC & Chem 7: 10/08/21 04:57 10/08/21 04:57 Labs: Laboratory Last Values WBC 4.1 K/mm3 (4.5-11.0) L 10/08/21 04:57 RBC 3.77 M/mm3 (3.65-5.03) 10/08/21 04:57 Hgb 8.7 gm/dl (11.8-15.2) L 10/08/21 04:57 Hct 28.4 % (35.5-45.6) L 10/08/21 04:57 MCV 75 fl (84-94) L 10/08/21 04:57 MCH 23 pg (28-32) L 10/08/21 04:57 MCHC 31 % (32-34) L 10/08/21 04:57 RDW 21.7 % (13.2-15.2) H 10/08/21 04:57 Plt Count 306 K/mm3 (140-440) 10/08/21 04:57 Lymph % (Auto) 30.2 % (13.4-35.0) 10/07/21 12:41 [place] % (Auto) [employer] 10/08/21 04:57 Eos % (Auto) 0.8 % (0.0-4.3) 10/07/21 12:41 Baso % (Auto) 0.9 % (0.0-1.8) 10/07/21 12:41 Lymph # (Auto) 1.8 K/mm3 (1.2-5.4) 10/07/21 12:41 [place] # (Auto) 1.0 K/mm3 (0.0-0.8) H 10/07/21 12:41 Eos # (Auto) 0.0 K/mm3 (0.0-0.4) 10/07/21 12:41 Baso # (Auto) 0.1 K/mm3 (0.0-0.1) 10/07/21 12:41 Add Manual Diff Complete 10/08/21 04:57 Total Counted 100 10/08/21 04:57 Seg Neutrophils % [employer] 10/08/21 04:57 Seg Neuts % (Manual) 38.0 % (40.0-70.0) L 10/08/21 04:57 Band Neutrophils % 0 % 10/08/21 04:57 Lymphocytes % (Manual) 47.0 % (13.4-35.0) H 10/08/21 04:57 Reactive Lymphs % (Man) 0 % 10/08/21 04:57 Monocytes % (Manual) 12.0 % (0.0-7.3) H 10/08/21 04:57 Eosinophils % (Manual) 3.0 % (0.0-4.3) 10/08/21 04:57 Basophils % (Manual) 0 % (0.0-1.8) 10/08/21 04:57 Metamyelocytes % 0 % 10/08/21 04:57 Myelocytes % 0 % 10/08/21 04:57 Promyelocytes % 0 % 10/08/21 04:57 Blast Cells % 0 % 10/08/21 04:57 Nucleated RBC % Not Reportable 10/08/21 04:57 Seg Neutrophils # 3.2 K/mm3 (1.8-7.7) 10/07/21 12:41 Seg Neutrophils # Man 1.6 K/mm3 (1.8-7.7) L 10/08/21 04:57 Band Neutrophils # 0.0 K/mm3 10/08/21 04:57 Lymphocytes # (Manual) 1.9 K/mm3 (1.2-5.4) 10/08/21 04:57 Abs React Lymphs (Man) 0.0 K/mm3 10/08/21 04:57 Monocytes # (Manual) 0.5 K/mm3 (0.0-0.8) 10/08/21 04:57 Eosinophils # (Manual) 0.1 K/mm3 (0.0-0.4) 10/08/21 04:57 Basophils # (Manual) 0.0 K/mm3 (0.0-0.1) 10/08/21 04:57 Metamyelocytes # 0.0 K/mm3 10/08/21 04:57 Myelocytes # 0.0 K/mm3 10/08/21 04:57 Promyelocytes # 0.0 K/mm3 10/08/21 04:57 Blast Cells # 0.0 K/mm3 10/08/21 04:57 WBC Morphology Not Reportable 10/08/21 04:57 Hypersegmented Neuts Not Reportable 10/08/21 04:57 Hyposegmented Neuts Not Reportable 10/08/21 04:57 Hypogranular Neuts Not Reportable 10/08/21 04:57 Smudge Cells Not Reportable 10/08/21 04:57 Toxic Granulation Not Reportable 10/08/21 04:57 Toxic Vacuolation Not Reportable 10/08/21 04:57 Dohle Bodies Not Reportable 10/08/21 04:57 Pelger-Huet Anomaly Not Reportable 10/08/21 04:57 Hayley Rods Not Reportable 10/08/21 04:57 Platelet Estimate Consistent w auto 10/08/21 04:57 Clumped Platelets Not Reportable 10/08/21 04:57 Plt Clumps, EDTA Not Reportable 10/08/21 04:57 Large Platelets Not Reportable 10/08/21 04:57 Giant Platelets Not Reportable 10/08/21 04:57 Platelet Satelliting Not Reportable 10/08/21 04:57 Plt Morphology Comment Not Reportable 10/08/21 04:57 RBC Morphology Not Reportable 10/08/21 04:57 Dimorphic RBCs Not Reportable 10/08/21 04:57 Polychromasia Not Reportable 10/08/21 04:57 Hypochromasia 1+ 10/08/21 04:57 Poikilocytosis Not Reportable 10/08/21 04:57 Anisocytosis 1+ 10/08/21 04:57 Microcytosis Not Reportable 10/08/21 04:57 Macrocytosis Not Reportable 10/08/21 04:57 Spherocytes Not Reportable 10/08/21 04:57 Pappenheimer Bodies Not Reportable 10/08/21 04:57 Sickle Cells Not Reportable 10/08/21 04:57 Target Cells Rare 10/08/21 04:57 Tear Drop Cells Not Reportable 10/08/21 04:57 Ovalocytes Rare 10/08/21 04:57 Helmet Cells Not Reportable 10/08/21 04:57 Villalobos-Orwell Bodies Not Reportable 10/08/21 04:57 Kirkman Rings Not Reportable 10/08/21 04:57 Mirela Cells Not Reportable 10/08/21 04:57 Bite Cells Not Reportable 10/08/21 04:57 Crenated Cell Not Reportable 10/08/21 04:57 Elliptocytes Few 10/08/21 04:57 Acanthocytes (Spur) Rare 10/08/21 04:57 Rouleaux Not Reportable 10/08/21 04:57 Hemoglobin C Crystals Not Reportable 10/08/21 04:57 Schistocytes Not Reportable 10/08/21 04:57 Malaria parasites Not Reportable 10/08/21 04:57 ESR 44 mm/Hr (0-20) 10/07/21 12:41 Dev Bodies Not Reportable 10/08/21 04:57 Hem Pathologist Commnt No 10/08/21 04:57 PT 14.7 Sec. (12.2-14.9) 10/07/21 12:41 INR 1.01 (0.87-1.13) 10/07/21 12:41 APTT 35.0 Sec. (24.2-36.6) 10/07/21 12:41 Sodium 136 mmol/L (137-145) L 10/08/21 04:57 Potassium 3.8 mmol/L (3.6-5.0) 10/08/21 04:57 Chloride 101.8 mmol/L (98-107) 10/08/21 04:57 Carbon Dioxide 25 mmol/L (22-30) 10/08/21 04:57 Anion Gap 13 mmol/L 10/08/21 04:57 BUN 16 mg/dL (9-20) 10/08/21 04:57 Creatinine 0.8 mg/dL (0.8-1.3) 10/08/21 04:57 Estimated GFR > 60 ml/min 10/08/21 04:57 BUN/Creatinine Ratio 20 % 10/08/21 04:57 Glucose 87 mg/dL (75-100) 10/08/21 04:57 Lactic Acid 1.40 mmol/L (0.7-2.0) 10/07/21 12:41 Calcium 9.6 mg/dL (8.4-10.2) 10/08/21 04:57 Iron 33 ug/dL (49-181) L 10/08/21 04:57 TIBC 413 mcg/dL (250-450) 10/08/21 04:57 % Saturation 7.99 % 10/08/21 04:57 Transferrin 341 mg/dl (180-329) H 10/08/21 04:57 Total Bilirubin 0.30 mg/dL (0.1-1.2) 10/08/21 04:57 AST 19 units/L (5-40) 10/08/21 04:57 ALT 10 units/L (7-56) 10/08/21 04:57 Alkaline Phosphatase 73 units/L (35-129) 10/08/21 04:57 Ammonia 19.0 umol/L (25-60) L 10/07/21 12:41 Total Creatine Kinase 377 units/L (55-170) H 10/07/21 12:41 Troponin T < 0.010 ng/mL (0.00-0.029) 10/07/21 12:41 C-Reactive Protein < 0.03 mg/dL (0.00-1.30) 10/07/21 12:41 Total Protein 7.4 g/dL (6.3-8.2) 10/08/21 04:57 Albumin 3.7 g/dL (3.9-5) L 10/08/21 04:57 Albumin/Globulin Ratio 1.0 % 10/08/21 04:57 Vitamin B12 791.0 pg/mL (211-911) 10/08/21 04:57 TSH 0.692 mlU/mL (0.270-4.200) 10/07/21 12:41 Urine Color Yellow (Yellow) 10/07/21 12:16 Urine Turbidity Clear (Clear) 10/07/21 12:16 Urine pH 6.0 (5.0-7.0) 10/07/21 12:16 Ur Specific [place] [employer] 1.018 (1.003-1.030) 10/07/21 12:16 Urine Protein <15 mg/dl mg/dL (Negative) 10/07/21 12:16 Urine Glucose (UA) Neg mg/dL (Negative) 10/07/21 12:16 Urine Ketones Neg mg/dL (Negative) 10/07/21 12:16 Urine Blood Lg (Negative) 10/07/21 12:16 Urine Nitrite Neg (Negative) 10/07/21 12:16 Urine Bilirubin Neg (Negative) 10/07/21 12:16 Urine Urobilinogen < 2.0 mg/dL (<2.0) 10/07/21 12:16 Ur Leukocyte Esterase Neg (Negative) 10/07/21 12:16 Urine WBC (Auto) 0.0 /HPF (0.0-6.0) 10/07/21 12:16 Urine RBC (Auto) < 1.0 /HPF (0.0-6.0) 10/07/21 12:16 Salicylates < 0.3 mg/dL (2.8-20.0) L 10/07/21 12:41 Urine Opiates Screen Negative 10/07/21 12:16 Urine Methadone Screen Negative 10/07/21 12:16 Acetaminophen 5.0 ug/mL (10.0-30.0) L 10/07/21 12:41 Ur Barbiturates Screen Negative 10/07/21 12:16 Ur Phencyclidine Scrn Negative 10/07/21 12:16 Ur Amphetamines Screen Negative 10/07/21 12:16 U Benzodiazepines Scrn Negative 10/07/21 12:16 Urine Cocaine Screen Negative 10/07/21 12:16 U Marijuana (THC) Screen Negative 10/07/21 12:16 Drugs of Abuse Note Disclamer 10/07/21 12:16 Plasma/Serum Alcohol < 0.01 % (0-0.07) 10/07/21 12:41 Microbiology: Microbiology 10/07/21 12:41 Peripheral/Venous Blood Culture - Preliminary Culture in Progress 10/07/21 12:41 Peripheral/Venous Blood Culture - Preliminary Culture in Progress Hodges/IV: Voiding Method Condom Catheter Active Medications - Current Medications Current Medications: Generic Name Dose Route Start Last Admin Trade Name Freq PRN Reason Stop Dose Admin Acetaminophen 650 mg 10/07/21 19:26 Acetaminophen 325 Mg Tab PO Q4H PRN Pain MILD(1-3)/Fever >100.5/MACDONALD Famotidine 20 mg 10/07/21 22:00 10/08/21 08:09 Famotidine 20 Mg Tab PO 20 mg BID F[place]ON Administration Haloperidol Lactate 5 mg 10/07/21 14:21 10/07/21 15:11 Haloperidol Lactate 5 Mg/1 Ml Inj IM 5 mg Q6HR PRN Administration Agitation Heparin Sodium (Porcine) 5,000 unit 10/07/21 22:00 10/08/21 08:10 Heparin 5,000 Unit/1 Ml Vial SUB-Q 5,000 unit Q12HR F[place]ON Administration Hydromorphone HCl 0.5 mg 10/07/21 19:26 Hydromorphone 0.5 Mg/0.5 Ml Inj IV Q3H PRN Pain , Severe (7-10) Sodium Chloride 1,000 mls @ 75 mls/hr 10/07/21 19:30 10/08/21 05:07 Nacl 0.9% 1000 Ml IV 75 mls/hr DIRECT F[place] Administration Ampicillin Sodium/Sulbactam Sodium 3 gm in 100 mls @ 100 mls/hr 10/07/21 22:00 10/08/21 05:06 Unasyn/Ns 3 Gm/100 Ml IV 100 mls/hr Q6H F[place] Administration Protocol Vancomycin HCl 1 gm in 250 mls @ 250 mls/hr 10/08/21 06:00 10/08/21 05:06 Vancomycin/Ns 1 Gm/250 Ml IV 250 mls/hr Q12H F[place] Administration Levetiracetam 750 mg 10/07/21 22:00 10/08/21 08:09 Levetiracetam 500 Mg Tab PO 750 mg BID F[place] Administration Lorazepam 2 mg 10/07/21 14:21 10/08/21 06:05 Lorazepam 2 Mg/Ml Vial IM 2 mg Q4HR PRN Administration Agitation Morphine Sulfate 2 mg 10/07/21 19:26 Morphine 2 Mg/1 Ml Inj IV Q4H PRN Pain, Moderate (4-6) Ondansetron HCl 4 mg 10/07/21 19:26 Ondansetron 4 Mg/2 Ml Inj IV Q8H PRN Nausea And Vomiting Sodium Chloride 10 ml 10/07/21 22:00 10/08/21 08:10 Sodium Chloride 0.9% 10 Ml Flush Syringe IV 10 ml BID [place] Administration Sodium Chloride 10 ml 10/07/21 19:26 Sodium Chloride 0.9% 10 Ml Flush Syringe IV PRN PRN LINE FLUSH
[2021-10-08] MEDS: HYDROmorphone 0.5 MG/0.5 ML INJ IV PRN (22:24)
[2021-10-09] MEDS: HALOPERIDOL LACTATE 5 MG/1 ML INJ IM PRN ×3 (00:35→21:41)
[2021-10-09 04:18] LABS: Basophils # (Auto) 0.1 K/mm3 (0.0-0.1); Eosinophils # (Auto) 0.1 K/mm3 (0.0-0.4); Eosinophils % (Auto) 1.1 % (0.0-4.3); Hematocrit 29.8 % (35.5-45.6); Hemoglobin 9.2 gm/dl (11.8-15.2); Lymphocytes # (Auto) 2.2 K/mm3 (1.2-5.4); Lymphocytes % (Auto) 31.4 % (13.4-35.0); Mean Corpuscular HGB Conc 31 % (32-34); Mean Corpuscular Volume 75 fl (84-94); Monocytes # (Auto) 0.8 K/mm3 (0.0-0.8); Monocytes % (Auto) 12.2 % (0.0-7.3); Platelet Count 294 K/mm3 (140-440); Red Blood Count 3.98 M/mm3 (3.65-5.03)
[2021-10-09 04:19] LABS: Red Cell Distribution Width 21.8 % (13.2-15.2)
[2021-10-09] MEDS: VANCOMYCIN/NS 1 GM/250 ML 1 GM/250 ML BAG IV SCH ×3 (04:29→18:19)
[2021-10-09] MEDS: AMPICILLIN/SULBACTA 3GM/100ML 3 GM/100 ML BAG IV SCH ×4 (04:29→21:40)
[2021-10-09] MEDS: SODIUM CHLORIDE 0.9% 1000 ML 1,000 ML IV SCH (04:30)
[2021-10-09 04:37] LABS: BUN/Creatinine Ratio 15; Blood Urea Nitrogen 12 mg/dL (9-20); Calcium 9.2 mg/dL (8.4-10.2); Hemolysis Index 6
[2021-10-09] MEDS: levETIRAcetam 500 MG TAB PO SCH ×2 (09:04→21:41)
[2021-10-09] MEDS: FAMOTIDINE 20 MG TAB PO SCH ×2 (09:05→21:40)
[2021-10-09] MEDS: HEPARIN 5,000 UNIT/1 ML VIAL SUB-Q SCH ×2 (09:05→21:41)
--- NOTE | 2021-10-09 10:23 | Progress Note ---
Assessment and Plan Assessment and plan: 61-year-old man with history of seizures had a fall about 3 to 4 weeks ago. Patient went to [facility] for treatment of his injury to the right ankle. He had a right ankle ulcer. With treatment by other hospital with dressings and antibiotics. Patient's right ankle wound has been worsening and swelling increasing in the right foot and also of the ankle and distal to lower extremity Right lower extremity cellulitis Sepsis. The patient meets criteria given the tachycardia, altered mentation and diagnosis of cellulitis. Toxic metabolic encephalopathy. Seizure disorder. Right tibia distal fracture. Right ankle ulcer. Anemia. 10/08/2021. Continue IV antibiotics. Follow-up cultures. X-rays revealed a comminuted fracture of the distal tibia and fibula definitely involving the mort ise of the ankle. Surgery reports that it is difficult to discern if this is an open fracture but there is a definite chronic wound in the vicinity of the fracture. Consult orthopedics for further evaluation. Posterior splint immobilization with Betadine soaked gauze for dressing at this time. Try to obtain records from [place] as soon as possible. 10/09/2021. Continue IV antibiotics. Blood cultures remain negative. Await orthopedics consult for comminuted fracture of the distal tibia and fibula. Continue wound care. No seizure activity. Continue Keppra 750 mg p.o. twice daily. H&H remained stable History Interval history: No new issues overnight Hospitalist Physical - Constitutional Vitals: Temp Pulse Resp BP Pulse Ox 97.3 F L 85 18 127/82 96 10/09/21 04:30 10/09/21 04:30 10/09/21 07:25 10/09/21 04:30 10/09/21 07:25 General appearance: Present: no acute distress, well-nourished - EENT Eyes: Present: PERRL, EOM intact ENT: hearing intact, clear oral mucosa, dentition normal - Neck Neck: Present: supple, normal ROM - Respiratory Respiratory effort: normal Respiratory: bilateral: CTA - Cardiovascular Rhythm: regular Heart Sounds: Present: S1 & S2. Absent: gallop, rub - Extremities Extremities: no ischemia, No edema, Full ROM - Abdominal General gastrointestinal: soft, non-tender, non-distended, normal bowel sounds - Integumentary Integumentary: Present: clear, warm, dry - Neurologic Neurologic: CNII-XII intact, moves all extremities HEART Score - HEART Score Troponin: Troponin T < 0.010 ng/mL (0.00-0.029) 10/07/21 12:41 Results - Labs CBC & Chem 7: 10/09/21 03:51 10/09/21 03:51 Labs: Laboratory Last Values WBC 6.9 K/mm3 (4.5-11.0) 10/09/21 03:51 RBC 3.98 M/mm3 (3.65-5.03) 10/09/21 03:51 Hgb 9.2 gm/dl (11.8-15.2) L 10/09/21 03:51 Hct 29.8 % (35.5-45.6) L 10/09/21 03:51 MCV 75 fl (84-94) L 10/09/21 03:51 MCH 23 pg (28-32) L 10/09/21 03:51 MCHC 31 % (32-34) L 10/09/21 03:51 RDW 21.8 % (13.2-15.2) H 10/09/21 03:51 Plt Count 294 K/mm3 (140-440) 10/09/21 03:51 Lymph % (Auto) 31.4 % (13.4-35.0) 10/09/21 03:51 [place] % (Auto) 12.2 % (0.0-7.3) H 10/09/21 03:51 Eos % (Auto) 1.1 % (0.0-4.3) 10/09/21 03:51 Baso % (Auto) 1.0 % (0.0-1.8) 10/09/21 03:51 Lymph # (Auto) 2.2 K/mm3 (1.2-5.4) 10/09/21 03:51 [place] # (Auto) 0.8 K/mm3 (0.0-0.8) 10/09/21 03:51 Eos # (Auto) 0.1 K/mm3 (0.0-0.4) 10/09/21 03:51 Baso # (Auto) 0.1 K/mm3 (0.0-0.1) 10/09/21 03:51 Add Manual Diff Complete 10/08/21 04:57 Total Counted 100 10/08/21 04:57 Seg Neutrophils % 54.3 % (40.0-70.0) 10/09/21 03:51 Seg Neuts % (Manual) 38.0 % (40.0-70.0) L 10/08/21 04:57 Band Neutrophils % 0 % 10/08/21 04:57 Lymphocytes % (Manual) 47.0 % (13.4-35.0) H 10/08/21 04:57 Reactive Lymphs % (Man) 0 % 10/08/21 04:57 Monocytes % (Manual) 12.0 % (0.0-7.3) H 10/08/21 04:57 Eosinophils % (Manual) 3.0 % (0.0-4.3) 10/08/21 04:57 Basophils % (Manual) 0 % (0.0-1.8) 10/08/21 04:57 Metamyelocytes % 0 % 10/08/21 04:57 Myelocytes % 0 % 10/08/21 04:57 Promyelocytes % 0 % 10/08/21 04:57 Blast Cells % 0 % 10/08/21 04:57 Nucleated RBC % Not Reportable 10/08/21 04:57 Seg Neutrophils # 3.8 K/mm3 (1.8-7.7) 10/09/21 03:51 Seg Neutrophils # Man 1.6 K/mm3 (1.8-7.7) L 10/08/21 04:57 Band Neutrophils # 0.0 K/mm3 10/08/21 04:57 Lymphocytes # (Manual) 1.9 K/mm3 (1.2-5.4) 10/08/21 04:57 Abs React Lymphs (Man) 0.0 K/mm3 10/08/21 04:57 Monocytes # (Manual) 0.5 K/mm3 (0.0-0.8) 10/08/21 04:57 Eosinophils # (Manual) 0.1 K/mm3 (0.0-0.4) 10/08/21 04:57 Basophils # (Manual) 0.0 K/mm3 (0.0-0.1) 10/08/21 04:57 Metamyelocytes # 0.0 K/mm3 10/08/21 04:57 Myelocytes # 0.0 K/mm3 10/08/21 04:57 Promyelocytes # 0.0 K/mm3 10/08/21 04:57 Blast Cells # 0.0 K/mm3 10/08/21 04:57 WBC Morphology Not Reportable 10/08/21 04:57 Hypersegmented Neuts Not Reportable 10/08/21 04:57 Hyposegmented Neuts Not Reportable 10/08/21 04:57 Hypogranular Neuts Not Reportable 10/08/21 04:57 Smudge Cells Not Reportable 10/08/21 04:57 Toxic Granulation Not Reportable 10/08/21 04:57 Toxic Vacuolation Not Reportable 10/08/21 04:57 Dohle Bodies Not Reportable 10/08/21 04:57 Pelger-Huet Anomaly Not Reportable 10/08/21 04:57 Hayley Rods Not Reportable 10/08/21 04:57 Platelet Estimate Consistent w auto 10/08/21 04:57 Clumped Platelets Not Reportable 10/08/21 04:57 Plt Clumps, EDTA Not Reportable 10/08/21 04:57 Large Platelets Not Reportable 10/08/21 04:57 Giant Platelets Not Reportable 10/08/21 04:57 Platelet Satelliting Not Reportable 10/08/21 04:57 Plt Morphology Comment Not Reportable 10/08/21 04:57 RBC Morphology Not Reportable 10/08/21 04:57 Dimorphic RBCs Not Reportable 10/08/21 04:57 Polychromasia Not Reportable 10/08/21 04:57 Hypochromasia 1+ 10/08/21 04:57 Poikilocytosis Not Reportable 10/08/21 04:57 Anisocytosis 1+ 10/08/21 04:57 Microcytosis Not Reportable 10/08/21 04:57 Macrocytosis Not Reportable 10/08/21 04:57 Spherocytes Not Reportable 10/08/21 04:57 Pappenheimer Bodies Not Reportable 10/08/21 04:57 Sickle Cells Not Reportable 10/08/21 04:57 Target Cells Rare 10/08/21 04:57 Tear Drop Cells Not Reportable 10/08/21 04:57 Ovalocytes Rare 10/08/21 04:57 Helmet Cells Not Reportable 10/08/21 04:57 Villalobos-Bude Bodies Not Reportable 10/08/21 04:57 [place] Rings Not Reportable 10/08/21 04:57 Greenwald Cells Not Reportable 10/08/21 04:57 Bite Cells Not Reportable 10/08/21 04:57 Crenated Cell Not Reportable 10/08/21 04:57 Elliptocytes Few 10/08/21 04:57 Acanthocytes (Spur) Rare 10/08/21 04:57 Rouleaux Not Reportable 10/08/21 04:57 Hemoglobin C Crystals Not Reportable 10/08/21 04:57 Schistocytes Not Reportable 10/08/21 04:57 Malaria parasites Not Reportable 10/08/21 04:57 ESR 44 mm/Hr (0-20) 10/07/21 12:41 Dev Bodies Not Reportable 10/08/21 04:57 Hem Pathologist Commnt No 10/08/21 04:57 PT 14.7 Sec. (12.2-14.9) 10/07/21 12:41 INR 1.01 (0.87-1.13) 10/07/21 12:41 APTT 35.0 Sec. (24.2-36.6) 10/07/21 12:41 Sodium 138 mmol/L (137-145) 10/09/21 03:51 Potassium 3.6 mmol/L (3.6-5.0) 10/09/21 03:51 Chloride 103.6 mmol/L (98-107) 10/09/21 03:51 Carbon Dioxide 21 mmol/L (22-30) L 10/09/21 03:51 Anion Gap 17 mmol/L 10/09/21 03:51 BUN 12 mg/dL (9-20) 10/09/21 03:51 Creatinine 0.8 mg/dL (0.8-1.3) 10/09/21 03:51 Estimated GFR > 60 ml/min 10/09/21 03:51 BUN/Creatinine Ratio 15 % 10/09/21 03:51 Glucose 86 mg/dL (75-100) 10/09/21 03:51 Lactic Acid 1.40 mmol/L (0.7-2.0) 10/07/21 12:41 Calcium 9.2 mg/dL (8.4-10.2) 10/09/21 03:51 Iron 33 ug/dL (49-181) L 10/08/21 04:57 TIBC 413 mcg/dL (250-450) 10/08/21 04:57 % Saturation 7.99 % 10/08/21 04:57 Transferrin 341 mg/dl (180-329) H 10/08/21 04:57 Total Bilirubin 0.30 mg/dL (0.1-1.2) 10/08/21 04:57 AST 19 units/L (5-40) 10/08/21 04:57 ALT 10 units/L (7-56) 10/08/21 04:57 Alkaline Phosphatase 73 units/L (35-129) 10/08/21 04:57 Ammonia 19.0 umol/L (25-60) L 10/07/21 12:41 Total Creatine Kinase 377 units/L (55-170) H 10/07/21 12:41 Troponin T < 0.010 ng/mL (0.00-0.029) 10/07/21 12:41 C-Reactive Protein < 0.03 mg/dL (0.00-1.30) 10/07/21 12:41 Total Protein 7.4 g/dL (6.3-8.2) 10/08/21 04:57 Albumin 3.7 g/dL (3.9-5) L 10/08/21 04:57 Albumin/Globulin Ratio 1.0 % 10/08/21 04:57 Vitamin B12 791.0 pg/mL (211-911) 10/08/21 04:57 TSH 0.692 mlU/mL (0.270-4.200) 10/07/21 12:41 Urine Color Yellow (Yellow) 10/07/21 12:16 Urine Turbidity Clear (Clear) 10/07/21 12:16 Urine pH 6.0 (5.0-7.0) 10/07/21 12:16 Ur Specific [place] 1.018 (1.003-1.030) 10/07/21 12:16 Urine Protein <15 mg/dl mg/dL (Negative) 10/07/21 12:16 Urine Glucose (UA) Neg mg/dL (Negative) 10/07/21 12:16 Urine Ketones Neg mg/dL (Negative) 10/07/21 12:16 Urine Blood Lg (Negative) 10/07/21 12:16 Urine Nitrite Neg (Negative) 10/07/21 12:16 Urine Bilirubin Neg (Negative) 10/07/21 12:16 Urine Urobilinogen < 2.0 mg/dL (<2.0) 10/07/21 12:16 Ur Leukocyte Esterase Neg (Negative) 10/07/21 12:16 Urine WBC (Auto) 0.0 /HPF (0.0-6.0) 10/07/21 12:16 Urine RBC (Auto) < 1.0 /HPF (0.0-6.0) 10/07/21 12:16 Salicylates < 0.3 mg/dL (2.8-20.0) L 10/07/21 12:41 Urine Opiates Screen Negative 10/07/21 12:16 Urine Methadone Screen Negative 10/07/21 12:16 Acetaminophen 5.0 ug/mL (10.0-30.0) L 10/07/21 12:41 Ur Barbiturates Screen Negative 10/07/21 12:16 Ur Phencyclidine Scrn Negative 10/07/21 12:16 Ur Amphetamines Screen Negative 10/07/21 12:16 U Benzodiazepines Scrn Negative 10/07/21 12:16 Urine Cocaine Screen Negative 10/07/21 12:16 U Marijuana (THC) Screen Negative 10/07/21 12:16 Drugs of Abuse Note Disclamer 10/07/21 12:16 Plasma/Serum Alcohol < 0.01 % (0-0.07) 10/07/21 12:41 Coronavirus (PCR) Negative (Negative) 10/08/21 09:42 Microbiology: Microbiology 10/07/21 12:41 Peripheral/Venous Blood Culture - Preliminary NO GROWTH AFTER 24 HOURS 10/07/21 12:41 Peripheral/Venous Blood Culture - Preliminary NO GROWTH AFTER 24 HOURS Hodges/IV: Voiding Method Incontinent Active Medications - Current Medications Current Medications: Generic Name Dose Route Start Last Admin Trade Name Freq PRN Reason Stop Dose Admin Acetaminophen 650 mg 10/07/21 19:26 Acetaminophen 325 Mg Tab PO Q4H PRN Pain MILD(1-3)/Fever >100.5/MACDONALD Famotidine 20 mg 10/07/21 22:00 10/09/21 09:05 Famotidine 20 Mg Tab PO 20 mg BID FALLON Administration Haloperidol Lactate 5 mg 10/07/21 14:21 06/27/22 00:35 Haloperidol Lactate 5 Mg/1 Ml Inj IM 5 mg Q6HR PRN Administration Agitation Heparin Sodium (Porcine) 5,000 unit 10/07/21 22:00 10/09/21 09:05 Heparin 5,000 Unit/1 Ml Vial SUB-Q 5,000 unit Q12HR FALLON Administration Hydromorphone HCl 0.5 mg 10/07/21 19:26 10/08/21 22:24 Hydromorphone 0.5 Mg/0.5 Ml Inj IV 0.5 mg Q3H PRN Administration Pain , Severe (7-10) Sodium Chloride 1,000 mls @ 75 mls/hr 10/07/21 19:30 10/09/21 04:30 Nacl 0.9% 1000 Ml IV 75 mls/hr DIRECT FALLON Administration Ampicillin Sodium/Sulbactam Sodium 3 gm in 100 mls @ 100 mls/hr 10/07/21 22:00 10/09/21 04:29 Unasyn/Ns 3 Gm/100 Ml IV 100 mls/hr Q6H FALLON Administration Protocol Vancomycin HCl 1 gm in 250 mls @ 250 mls/hr 10/08/21 06:00 10/09/21 05:57 Vancomycin/Ns 1 Gm/250 Ml IV Not Given Q12H FALLON Levetiracetam 750 mg 10/07/21 22:00 10/09/21 09:04 Levetiracetam 500 Mg Tab PO 750 mg BID F[place]ON Administration Lorazepam 2 mg 10/07/21 14:21 10/08/21 20:17 Lorazepam 2 Mg/Ml Vial IM 2 mg Q4HR PRN Administration Agitation Morphine Sulfate 2 mg 10/07/21 19:26 Morphine 2 Mg/1 Ml Inj IV Q4H PRN Pain, Moderate (4-6) Ondansetron HCl 4 mg 10/07/21 19:26 Ondansetron 4 Mg/2 Ml Inj IV Q8H PRN Nausea And Vomiting Sodium Chloride 10 ml 10/07/21 22:00 10/09/21 09:05 Sodium Chloride 0.9% 10 Ml Flush Syringe IV 10 ml BID F[place]ON Administration Sodium Chloride 10 ml 10/07/21 19:26 Sodium Chloride 0.9% 10 Ml Flush Syringe IV PRN PRN LINE FLUSH Nutrition/Malnutrition Assess - Dietary Evaluation Nutrition/Malnutrition Findings: Nutrition Notes Start: 10/08/21 13:29 Freq: Status: Active Protocol: Document 10/08/21 13:29 RS (Rec: 10/08/21 13:33 RS [id number]) Nutrition Notes Need for Assessment generated from: therapeutic specialist Initial or Follow up Assessment Other Pertinent Diagnosis Acute Encephalopathy, Cellulitis in R LE, Ulcer on RLE, Fx tibia Current Diet Regular Diet Labs/Tests Na:136 Pertinent Medications reviewed Height 5 ft 8 in Weight 69.2 kg [place] Body Weight (kg) 70.00 BMI 23.1 Intake Prior to Admission Good Weight change and time frame STEF wt change at this time Weight Status Appropriate Subjective/Other Information 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 Pt has poor healing ulcer on right ankle for >2 weeks. Pt was NPO for breakfast this AM but diet has been advanced to regular diet. Will order ONS to help with wound healing. Percent of energy/protein needs met: 0%/0% GI Symptoms None Current % PO Negligible Minimum of two criteria No physical signs of malnutrition #1 Nutrition Diagnosis Increased nutrient needs ( specify in comment below) Comments: protein Etiology ulcer on RLE As Evidenced by Signs and Symptoms poor healing wound with no improvement for >2weeks Is patient on ventilator? No Is Patient Ambulatory and/or Out of Bed No REE-([facility]-confined to bed) [phone] Additional Notes Pro: 69-83g/day (1-1.2gkg BW/ day) Fluid: 1mL per kcal or per MD Nutrition Intervention Nutrition Support: Ensure Enlive Vanilla qd Kcal 350 Protein (gm) 20 Goal #1 Pt will meet at least 75% of kcal/Protein needs via PO intake +ONS Anticipated Discharge Needs: Regular diet + ONS Follow-Up By: 10/09/21 Additional Comments F/U intakes, appetite changes, ONS tolerance
--- NOTE | 2021-10-09 10:39 | Electrocardiograph Report ---
[facility] Test Date: 2021-10-07 Test Time: 11:45:34 Pat Name: OREN DANIELSON Department: Room: A365 Gender: M Clinic Lead: [id number] : 1960 Requested By: KULDEEP RUGGIERO Order Number: [id number] Reading MD: Minal Chong Measurements Intervals [place] Rate: 91 P: 34 NM: 146 QRS: -80 QRSD: 94 T: -38 QT: 358 QTc: 439 Interpretive Statements Sinus rhythm Left axis deviation T wave abnormality, consider anterolateral ischemia No previous ECG available for comparison Electronically Signed On 10-09-2021 10:38:43 EDT by Minal Chong
[2021-10-09] MEDS: ACETAMINOPHEN 325 MG TAB PO PRN (11:45)
--- NOTE | 2021-10-09 14:38 | Progress Note ---
Assessment and Plan This patient has definite changes to his distal fibula and tibia. Review of the x-ray shows there to be a comminuted fracture of the distal tibia and fibula definitely involving the mortise of the ankle. Difficult to discern if this is an open fracture but there is a definite chronic wound in the vicinity of the fracture. Posterior splint immobilization with Betadine soaked gauze for dressing at this time. Ortho will not be available for 2 weeks. Try to obtain records from [place] as soon as possible. consider discharge to fu with [place] orth[facility]. Subjective Patient Reports: Positive: no new complaints Narrative: Less confused today. Objective Vital Signs - 12hr 10/09/21 10/09/21 10/09/21 04:30 07:25 11:31 Temperature 97.3 F L 98.5 F Pulse Rate 85 84 Respiratory 20 18 18 Rate Blood Pressure 124/78 Blood Pressure 127/82 [Left] O2 Sat by Pulse 99 96 98 Oximetry - Labs 10/09/21 03:51 10/09/21 03:51 Diabetes panel 10/09/21 Range/Units 03:51 Sodium 138 (137-145) mmol/L Potassium 3.6 (3.6-5.0) mmol/L Chloride 103.6 (98-107) mmol/L Carbon Dioxide 21 L (22-30) mmol/L BUN 12 (9-20) mg/dL Creatinine 0.8 (0.8-1.3) mg/dL Glucose 86 (75-100) mg/dL Calcium 9.2 (8.4-10.2) mg/dL Calcium panel 10/09/21 Range/Units 03:51 Calcium 9.2 (8.4-10.2) mg/dL Pituitary panel 10/09/21 Range/Units 03:51 Sodium 138 (137-145) mmol/L Potassium 3.6 (3.6-5.0) mmol/L Chloride 103.6 (98-107) mmol/L Carbon Dioxide 21 L (22-30) mmol/L BUN 12 (9-20) mg/dL Creatinine 0.8 (0.8-1.3) mg/dL Glucose 86 (75-100) mg/dL Calcium 9.2 (8.4-10.2) mg/dL Adrenal panel 10/09/21 Range/Units 03:51 Sodium 138 (137-145) mmol/L Potassium 3.6 (3.6-5.0) mmol/L Chloride 103.6 (98-107) mmol/L Carbon Dioxide 21 L (22-30) mmol/L BUN 12 (9-20) mg/dL Creatinine 0.8 (0.8-1.3) mg/dL Glucose 86 (75-100) mg/dL Calcium 9.2 (8.4-10.2) mg/dL
[2021-10-09] MEDS ORDERED: WATER FOR INJ Sterile (PF) 0 ML ONE (21:27)
[2021-10-10] MEDS: LORazepam 2 MG/ML VIAL IM PRN ×3 (02:46→22:17)
[2021-10-10] MEDS: AMPICILLIN/SULBACTA 3GM/100ML 3 GM/100 ML BAG IV SCH ×4 (03:16→22:25)
[2021-10-10] MEDS: SODIUM CHLORIDE 0.9% 1000 ML 1,000 ML IV SCH (05:43)
[2021-10-10] MEDS: HEPARIN 5,000 UNIT/1 ML VIAL SUB-Q SCH ×2 (11:05→22:27)
[2021-10-10] MEDS: levETIRAcetam 500 MG TAB PO SCH ×2 (11:05→22:26)
[2021-10-10] MEDS: FAMOTIDINE 20 MG TAB PO SCH ×2 (11:06→22:25)
[2021-10-10] MEDS: VANCOMYCIN/NS 1 GM/250 ML 1 GM/250 ML BAG IV SCH ×2 (11:07→18:13)
[2021-10-10] MEDS: ACETAMINOPHEN 325 MG TAB PO PRN (12:05)
--- NOTE | 2021-10-10 12:50 | Progress Note ---
Hospitalist Physical - Constitutional Vitals: Temp Pulse Resp BP Pulse Ox 98.2 F 86 18 157/111 95 10/10/21 04:00 10/10/21 04:00 10/10/21 04:00 10/10/21 04:00 10/10/21 04:00 General appearance: Present: no acute distress, well-nourished HEART Score - HEART Score Troponin: Troponin T < 0.010 ng/mL (0.00-0.029) 10/07/21 12:41 Results - Labs CBC & Chem 7: 10/09/21 03:51 10/09/21 03:51 Labs: Laboratory Last Values WBC 6.9 K/mm3 (4.5-11.0) 10/09/21 03:51 RBC 3.98 M/mm3 (3.65-5.03) 10/09/21 03:51 Hgb 9.2 gm/dl (11.8-15.2) L 10/09/21 03:51 Hct 29.8 % (35.5-45.6) L 10/09/21 03:51 MCV 75 fl (84-94) L 10/09/21 03:51 MCH 23 pg (28-32) L 10/09/21 03:51 MCHC 31 % (32-34) L 10/09/21 03:51 RDW 21.8 % (13.2-15.2) H 10/09/21 03:51 Plt Count 294 K/mm3 (140-440) 10/09/21 03:51 Lymph % (Auto) 31.4 % (13.4-35.0) 10/09/21 03:51 [place] % (Auto) 12.2 % (0.0-7.3) H 10/09/21 03:51 Eos % (Auto) 1.1 % (0.0-4.3) 10/09/21 03:51 Baso % (Auto) 1.0 % (0.0-1.8) 10/09/21 03:51 Lymph # (Auto) 2.2 K/mm3 (1.2-5.4) 10/09/21 03:51 [place] # (Auto) 0.8 K/mm3 (0.0-0.8) 10/09/21 03:51 Eos # (Auto) 0.1 K/mm3 (0.0-0.4) 10/09/21 03:51 Baso # (Auto) 0.1 K/mm3 (0.0-0.1) 10/09/21 03:51 Add Manual Diff Complete 10/08/21 04:57 Total Counted 100 10/08/21 04:57 Seg Neutrophils % 54.3 % (40.0-70.0) 10/09/21 03:51 Seg Neuts % (Manual) 38.0 % (40.0-70.0) L 10/08/21 04:57 Band Neutrophils % 0 % 10/08/21 04:57 Lymphocytes % (Manual) 47.0 % (13.4-35.0) H 10/08/21 04:57 Reactive Lymphs % (Man) 0 % 10/08/21 04:57 Monocytes % (Manual) 12.0 % (0.0-7.3) H 10/08/21 04:57 Eosinophils % (Manual) 3.0 % (0.0-4.3) 10/08/21 04:57 Basophils % (Manual) 0 % (0.0-1.8) 10/08/21 04:57 Metamyelocytes % 0 % 10/08/21 04:57 Myelocytes % 0 % 10/08/21 04:57 Promyelocytes % 0 % 10/08/21 04:57 Blast Cells % 0 % 10/08/21 04:57 Nucleated RBC % Not Reportable 10/08/21 04:57 Seg Neutrophils # 3.8 K/mm3 (1.8-7.7) 10/09/21 03:51 Seg Neutrophils # Man 1.6 K/mm3 (1.8-7.7) L 10/08/21 04:57 Band Neutrophils # 0.0 K/mm3 10/08/21 04:57 Lymphocytes # (Manual) 1.9 K/mm3 (1.2-5.4) 10/08/21 04:57 Abs React Lymphs (Man) 0.0 K/mm3 10/08/21 04:57 Monocytes # (Manual) 0.5 K/mm3 (0.0-0.8) 10/08/21 04:57 Eosinophils # (Manual) 0.1 K/mm3 (0.0-0.4) 10/08/21 04:57 Basophils # (Manual) 0.0 K/mm3 (0.0-0.1) 10/08/21 04:57 Metamyelocytes # 0.0 K/mm3 10/08/21 04:57 Myelocytes # 0.0 K/mm3 10/08/21 04:57 Promyelocytes # 0.0 K/mm3 10/08/21 04:57 Blast Cells # 0.0 K/mm3 10/08/21 04:57 WBC Morphology Not Reportable 10/08/21 04:57 Hypersegmented Neuts Not Reportable 10/08/21 04:57 Hyposegmented Neuts Not Reportable 10/08/21 04:57 Hypogranular Neuts Not Reportable 10/08/21 04:57 Smudge Cells Not Reportable 10/08/21 04:57 Toxic Granulation Not Reportable 10/08/21 04:57 Toxic Vacuolation Not Reportable 10/08/21 04:57 Dohle Bodies Not Reportable 10/08/21 04:57 Pelger-Huet Anomaly Not Reportable 10/08/21 04:57 Hayley Rods Not Reportable 10/08/21 04:57 Platelet Estimate Consistent w auto 10/08/21 04:57 Clumped Platelets Not Reportable 10/08/21 04:57 Plt Clumps, EDTA Not Reportable 10/08/21 04:57 Large Platelets Not Reportable 10/08/21 04:57 Giant Platelets Not Reportable 10/08/21 04:57 Platelet Satelliting Not Reportable 10/08/21 04:57 Plt Morphology Comment Not Reportable 10/08/21 04:57 RBC Morphology Not Reportable 10/08/21 04:57 Dimorphic RBCs Not Reportable 10/08/21 04:57 Polychromasia Not Reportable 10/08/21 04:57 Hypochromasia 1+ 10/08/21 04:57 Poikilocytosis Not Reportable 10/08/21 04:57 Anisocytosis 1+ 10/08/21 04:57 Microcytosis Not Reportable 10/08/21 04:57 Macrocytosis Not Reportable 10/08/21 04:57 Spherocytes Not Reportable 10/08/21 04:57 Pappenheimer Bodies Not Reportable 10/08/21 04:57 Sickle Cells Not Reportable 10/08/21 04:57 Target Cells Rare 10/08/21 04:57 Tear Drop Cells Not Reportable 10/08/21 04:57 Ovalocytes Rare 10/08/21 04:57 Helmet Cells Not Reportable 10/08/21 04:57 Villalobos-Kellogg Bodies Not Reportable 10/08/21 04:57 [place] Rings Not Reportable 10/08/21 04:57 [place] Cells Not Reportable 10/08/21 04:57 Bite Cells Not Reportable 10/08/21 04:57 Crenated Cell Not Reportable 10/08/21 04:57 Elliptocytes Few 10/08/21 04:57 Acanthocytes (Spur) Rare 10/08/21 04:57 Rouleaux Not Reportable 10/08/21 04:57 Hemoglobin C Crystals Not Reportable 10/08/21 04:57 Schistocytes Not Reportable 10/08/21 04:57 Malaria parasites Not Reportable 10/08/21 04:57 ESR 44 mm/Hr (0-20) 10/07/21 12:41 Dev Bodies Not Reportable 10/08/21 04:57 Hem Pathologist Commnt No 10/08/21 04:57 PT 14.7 Sec. (12.2-14.9) 10/07/21 12:41 INR 1.01 (0.87-1.13) 10/07/21 12:41 APTT 35.0 Sec. (24.2-36.6) 10/07/21 12:41 Sodium 138 mmol/L (137-145) 10/09/21 03:51 Potassium 3.6 mmol/L (3.6-5.0) 10/09/21 03:51 Chloride 103.6 mmol/L (98-107) 10/09/21 03:51 Carbon Dioxide 21 mmol/L (22-30) L 10/09/21 03:51 Anion Gap 17 mmol/L 10/09/21 03:51 BUN 12 mg/dL (9-20) 10/09/21 03:51 Creatinine 0.8 mg/dL (0.8-1.3) 10/09/21 03:51 Estimated GFR > 60 ml/min 10/09/21 03:51 BUN/Creatinine Ratio 15 % 10/09/21 03:51 Glucose 86 mg/dL (75-100) 10/09/21 03:51 Lactic Acid 1.40 mmol/L (0.7-2.0) 10/07/21 12:41 Calcium 9.2 mg/dL (8.4-10.2) 10/09/21 03:51 Iron 33 ug/dL (49-181) L 10/08/21 04:57 TIBC 413 mcg/dL (250-450) 10/08/21 04:57 % Saturation 7.99 % 10/08/21 04:57 Transferrin 341 mg/dl (180-329) H 10/08/21 04:57 Total Bilirubin 0.30 mg/dL (0.1-1.2) 10/08/21 04:57 AST 19 units/L (5-40) 10/08/21 04:57 ALT 10 units/L (7-56) 10/08/21 04:57 Alkaline Phosphatase 73 units/L (35-129) 10/08/21 04:57 Ammonia 19.0 umol/L (25-60) L 10/07/21 12:41 Total Creatine Kinase 377 units/L (55-170) H 10/07/21 12:41 Troponin T < 0.010 ng/mL (0.00-0.029) 10/07/21 12:41 C-Reactive Protein < 0.03 mg/dL (0.00-1.30) 10/07/21 12:41 Total Protein 7.4 g/dL (6.3-8.2) 10/08/21 04:57 Albumin 3.7 g/dL (3.9-5) L 10/08/21 04:57 Albumin/Globulin Ratio 1.0 % 10/08/21 04:57 Vitamin B12 791.0 pg/mL (211-911) 10/08/21 04:57 TSH 0.692 mlU/mL (0.270-4.200) 10/07/21 12:41 Urine Color Yellow (Yellow) 10/07/21 12:16 Urine Turbidity Clear (Clear) 10/07/21 12:16 Urine pH 6.0 (5.0-7.0) 10/07/21 12:16 Ur Specific [place] 1.018 (1.003-1.030) 10/07/21 12:16 Urine Protein <15 mg/dl mg/dL (Negative) 10/07/21 12:16 Urine Glucose (UA) Neg mg/dL (Negative) 10/07/21 12:16 Urine Ketones Neg mg/dL (Negative) 10/07/21 12:16 Urine Blood Lg (Negative) 10/07/21 12:16 Urine Nitrite Neg (Negative) 10/07/21 12:16 Urine Bilirubin Neg (Negative) 10/07/21 12:16 Urine Urobilinogen < 2.0 mg/dL (<2.0) 10/07/21 12:16 Ur Leukocyte Esterase Neg (Negative) 10/07/21 12:16 Urine WBC (Auto) 0.0 /HPF (0.0-6.0) 10/07/21 12:16 Urine RBC (Auto) < 1.0 /HPF (0.0-6.0) 10/07/21 12:16 Vancomycin Trough 4.0 ug/mL (5.0-20.0) L 10/10/21 05:01 Salicylates < 0.3 mg/dL (2.8-20.0) L 10/07/21 12:41 Urine Opiates Screen Negative 10/07/21 12:16 Urine Methadone Screen Negative 10/07/21 12:16 Acetaminophen 5.0 ug/mL (10.0-30.0) L 10/07/21 12:41 Ur Barbiturates Screen Negative 10/07/21 12:16 Ur Phencyclidine Scrn Negative 10/07/21 12:16 Ur Amphetamines Screen Negative 10/07/21 12:16 U Benzodiazepines Scrn Negative 10/07/21 12:16 Urine Cocaine Screen Negative 10/07/21 12:16 U Marijuana (THC) Screen Negative 10/07/21 12:16 Drugs of Abuse Note Disclamer 10/07/21 12:16 Plasma/Serum Alcohol < 0.01 % (0-0.07) 10/07/21 12:41 Coronavirus (PCR) Negative (Negative) 10/08/21 09:42 Microbiology: Microbiology 10/07/21 12:41 Peripheral/Venous Blood Culture - Preliminary NO GROWTH AFTER 48 HOURS 10/07/21 12:41 Peripheral/Venous Blood Culture - Preliminary NO GROWTH AFTER 48 HOURS 10/07/21 12:16 Urine,Clean Catch Urine Culture - Preliminary Gram Negative Carlo Hodges/IV: Voiding Method Condom Catheter Active Medications - Current Medications Current Medications: Generic Name Dose Route Start Last Admin Trade Name Freq PRN Reason Stop Dose Admin Acetaminophen 650 mg 10/07/21 19:26 10/10/21 12:05 Acetaminophen 325 Mg Tab PO 650 mg Q4H PRN Administration Pain MILD(1-3)/Fever >100.5/MACDONALD Famotidine 20 mg 10/07/21 22:00 10/10/21 11:06 Famotidine 20 Mg Tab PO 20 mg BID FALLON Administration Haloperidol Lactate 5 mg 10/07/21 14:21 10/09/21 21:41 Haloperidol Lactate 5 Mg/1 Ml Inj IM 5 mg Q6HR PRN Administration Agitation Heparin Sodium (Porcine) 5,000 unit 10/07/21 22:00 10/10/21 11:05 Heparin 5,000 Unit/1 Ml Vial SUB-Q 5,000 unit Q12HR FALLON Administration Hydromorphone HCl 0.5 mg 10/07/21 19:26 10/08/21 22:24 Hydromorphone 0.5 Mg/0.5 Ml Inj IV 0.5 mg Q3H PRN Administration Pain , Severe (7-10) Sodium Chloride 1,000 mls @ 75 mls/hr 10/07/21 19:30 10/10/21 05:43 Nacl 0.9% 1000 Ml IV 75 mls/hr DIRECT FALLON Administration Ampicillin Sodium/Sulbactam Sodium 3 gm in 100 mls @ 100 mls/hr 10/07/21 22:00 10/10/21 10:08 Unasyn/Ns 3 Gm/100 Ml IV 100 mls/hr Q6H F[place]ON Administration Protocol Vancomycin HCl 1 gm in 250 mls @ 250 mls/hr 10/10/21 10:00 10/10/21 11:07 Vancomycin/Ns 1 Gm/250 Ml IV 250 mls/hr Q8H F[place]ON Administration Levetiracetam 750 mg 10/07/21 22:00 10/10/21 11:05 Levetiracetam 500 Mg Tab PO 750 mg BID F[place]ON Administration Lorazepam 2 mg 10/07/21 14:21 10/10/21 12:05 Lorazepam 2 Mg/Ml Vial IM 2 mg Q4HR PRN Administration Agitation Morphine Sulfate 2 mg 10/07/21 19:26 10/09/21 18:21 Morphine 2 Mg/1 Ml Inj IV 2 mg Q4H PRN Administration Pain, Moderate (4-6) Ondansetron HCl 4 mg 10/07/21 19:26 Ondansetron 4 Mg/2 Ml Inj IV Q8H PRN Nausea And Vomiting Sodium Chloride 10 ml 10/07/21 22:00 10/10/21 12:06 Sodium Chloride 0.9% 10 Ml Flush Syringe IV 10 ml BID F[place]ON Administration Sodium Chloride 10 ml 10/07/21 19:26 Sodium Chloride 0.9% 10 Ml Flush Syringe IV PRN PRN LINE FLUSH Nutrition/Malnutrition Assess - Dietary Evaluation Nutrition/Malnutrition Findings: Nutrition Notes Start: 10/08/21 13:29 Freq: Status: Active Protocol: Document 10/09/21 12:09 ERLINDA (Rec: 10/09/21 12:36 ERLINDA [id number]) Nutrition Notes Initial or Follow up Reassessment Current Diagnosis Sepsis Other Pertinent Diagnosis R-Tibia/Fibula Fracture, R- Ankle Cellulitis/Ulcer, Toxic Metabolic Encephal Current Diet Refular Diet + D Suppl (since L 10/08). Labs/Tests 10/09: CO2 21. Pertinent Medications 10/09: Nutritionally unremarkable. Height 5 ft 8 in Weight 69.2 kg [place] Body Weight (kg) 70.00 BMI 23.1 Weight change and time frame No body weight xhange reported in 1 day. Weight Status Appropriate Subjective/Other Information RD consult for routine F/U on Dietary Advancement. Pt's PO intake of meals has been Poor (25%), according to ADL notes. I will continue Dietary Supplementation as is until F/ U reassessment. Pt is on Room Air, O2 saturattion @ 96%, according to Physical Assessment History notes. Pt presents a R-Ankle Cellulitis/Ulcer, secondary to fall 3 to 4 weeks ago, according to Physical Assessment History notes and Progress notes. Pt is awaiting for Orthopedics consult, according to Progress notes. Percent of energy/protein needs met: Prescribed Regular Diet provides for energy/protein needs (2,289 Kcal/89 g) during LOS; additionally, Dietary Supplements will support wound healing processes with 350 Kcal and 20 g of protein. Burn Absent Trauma Present GI Symptoms None Food Allergy No Skin Integrity/Comment R-Ankle Cellulitis/Ulcer. Current % PO Poor (25-49%) Minimum of two criteria No Fluid Accumulation N/A Reduced Supervisor Polishing Strength N/A (non-severe) Protein-Calorie Malnutrition N\A #1 Nutrition Diagnosis Increased nutrient needs ( specify in comment below) Comments: Protein to support wound healing processes. Diagnosis Progress(for reassessment Continues documentation) Is patient on ventilator? No Is Patient Ambulatory and/or Out of Bed No REE-([place]-St. Jeor-confined to bed) 2986.732 Calculation Used for Recommendations [facility] Additional Notes Protein: 1.5-2 g/Kg ABW; 104- 138 g/day. Fluids: 1 ml/Kcal, or as per MD. Nutrition Intervention Change Diet Order: Continue Regular Diet, as tolerated. Add Supplement/Snack (indicate name/kcal Continue 8 fl oz Ensure Enlive /protein ) ; Once a Day. Provides kCal: 350 Provides Protein (gm) 20 Goal #1 Support, through dietary supplementation, wound healing processes during LOS. Goal #2 Adjust the dietary intervention to better serve Pt's needs and clinical conditions during LOS. Follow-Up By: 10/12/21 Additional Comments Continue monitoring food tolerance, %PO intake of meals and ONS, and BM.
--- NOTE | 2021-10-10 13:08 | Discharge Summary ---
Providers - Providers Date of Admission: 10/07/21 23:11 Date of discharge: 10/10/21 Attending physician: JENNIFFER TAN MD 10/07/21 14:20 Consult to Physician [CONS] Urgent Comment: Consulting Provider: ZOEY MUÑOZ Physician Instructions: Reason For Exam: rle osteomyelitis 10/08/21 00:52 Consult to Physician [CONS] Routine Comment: Consulting Provider: JUAN SANTANA Physician Instructions: Reason For Exam: Right lower tibia fracture 10/10/21 11:36 Consult to Case Management [CONS] Routine Services Needed at Discharge: Other Comment:: snf placement. 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 Patient went to [facility] for treatment of his injury to the right ankle. He had a right ankle ulcer. With treatment by other hospital with dressings and antibiotics. Patient's right ankle wound has been worsening and swelling increasing in the right foot and also of the ankle and distal to lower extremity. No radiation of the pain. Pain is about 8 on a scale of 1-10. No discharge. But dark appearing wound with pain. Low-grade fever present. Blunt trauma for which 3 to 4 weeks ago. Patient is somewhat confused. No exacerbating or relieving factors. Pain is sharp and intermittent in nature. Hospital Course: 10/08/2021. Continue IV antibiotics. Follow-up cultures. X-rays revealed a comminuted fracture of the distal tibia and fibula definitely involving the mortise of the ankle. Surgery reports that it is difficult to discern if this is an open fracture but there is a definite chronic wound in the vicinity of the fracture. Consult orthopedics for further evaluation. Posterior splint immobilization with Betadine soaked gauze for dressing at this time. Try to obtain records from [place] as soon as possible. 10/09/2021. Continue IV antibiotics. Blood cultures remain negative. Await orthopedics consult for comminuted fracture of the distal tibia and fibula. Continue wound care. No seizure activity. Continue Keppra 750 mg p.o. twice daily. H&H remained stable 10/10/2021: Patient was admitted for cellulitis, acute metabolic encephalopathy and right tibial fracture. Tibial fracture was sustained approximately 3 to 4 weeks ago. Patient was seen at [facility] by orthopedic surgery who splinted the patient and recommended outpatient follow-up. Unfortunately orthopedic surgery services not available at our facility at the current moment so a reevaluation was not possible this admission. He was seen and evaluated by general surgery who recommended posterior tibial splint. The patient has been treated with vancomycin and Unasyn for the the past 72 hours. Encephalopathy has resolved, vital signs are stable and patient appears to be at his baseline mentation (dementia apparent but answers questions appropriately). will be discharged home with a prescription for Augmentin. I discussed with the patient's sister Erin Peng and counseled her on the next steps for the patient's care. I recommended that the patient be seen by [place] [facility] surgery in their outpatient clinic. I also recommended wound care. The patient is to follow-up with her primary care physician in 3 to 5 days. Assessment and Plan: #Sepsis POA #Right lower extremity Cellulitis #Right ankle ulcer #Right tibia distal fracture -was seen 4 weeks ago by [facility] #Acute metabolic encephalopathy (resolved) #Dementia- baseline confusion #History of Seizures #Anemia #Advance care planning Disease education conducted, care plan discussed, diagnoses discussed, prognosis discussed, patient is full code, patient acknowledges understanding and agree with care plan, discussed about patient clinical course and answered all que stions to satisfaction. +30 minutes. +30 minutes. Disposition: 01 HOME / SELF CARE / HOMELESS Final Discharge Diagnosis (Prints w/discharge instructions): Acute metabolic encephalopathy, sepsis, right lower extremity cellulitis, right tibial fracture Time spent for discharge: 35 Core Measure Documentation - Palliative Care Palliative Care/ Comfort Measures: Not Applicable - Core Measures Any of the following diagnoses?: none Exam - Physical Exam Narrative exam: General appearance: in no apparent distress, anxious - Head Head exam: Present: atraumatic, normocephalic - Eye Eye exam: Present: normal appearance, EOMI, other (Visual acuity is intact to finger counting in color perception at a close distance). Absent: nystagmus - ENT ENT exam: Present: normal orophraynx, mucous membranes dry, normal external ear exam - Neck Neck exam: Present: normal inspection, full ROM. Absent: tenderness, meningismus - Respiratory Respiratory exam: Present: respiratory distress, rhonchi. Absent: rales, decreased breath sounds - Cardiovascular Cardiovascular Exam: Present: regular rate, normal rhythm, normal heart sounds. Absent: bradycardia, tachycardia, irregular rhythm, systolic murmur, diastolic murmur, rubs, gallop - GI/Abdominal GI/Abdominal exam: Present: soft. Absent: distended, tenderness, guarding, rebound, rigid, pulsatile mass - Rectal Rectal exam: Present: deferred - Extremities Exam Extremities exam: Present: full ROM, tenderness (The right ankle is tender, and there is skin wound, on the lateral aspect of the malleolus, with possible necrotic tissue. There is no streaking.), pedal edema, other (2+ pulses noted in the bilateral upper and lower extremities. The r bilateral upper extremities and left lower extremity are nontender. The pelvis is stable). Absent: normal inspection, calf tenderness - Back Exam Back exam: Present: normal inspection. Absent: tenderness, CVA tenderness (R), CVA tenderness (L), paraspinal tenderness, vertebral tenderness - Neurological Exam Neurological exam: Present: altered (The patient is awake and alert to name and location. He does not know the year. He does not know the president.), other (There is no facial droop. The tongue is midline. EOMI. 5/5 strength in 4 extremities, sensation is intact to light touch in 4 extremities) - Psychiatric Psychiatric exam: Present: flat affect - Skin Skin exam: Present: warm, other (On the right anterior and lateral lower extremity, there is a wound that is approximately 10 cm x 5 cm. There is dry tissue, without redness, pus or streaking.) - Constitutional Vitals: Temp Pulse Resp BP Pulse Ox 98.0 F 88 16 140/75 97 10/10/21 10:58 10/10/21 10:58 10/10/21 10:58 10/10/21 10:58 10/10/21 10:58 Plan Additional Instructions: Patient was admitted for cellulitis, acute metabolic encephalopathy and right tibial fracture. Tibial fracture was sustained approximately 3 to 4 weeks ago. Patient was seen at [facility] by orthopedic surgery who splinted the patient and recommended outpatient follow- up. Unfortunately orthopedic surgery services not available at our facility at the current moment so a reevaluation was not possible this admission. He was seen and evaluated by general surgery who recommended posterior tibial splint. The patient has been treated with vancomycin and Unasyn for the the past 72 hours. Encephalopathy has resolved, vital signs are stable and patient appears to be at his baseline mentation (dementia apparent but answers questions appropriately). will be discharged home with a prescription for Augmentin. I discussed with the patient's sister Erin Peng and counseled her on the next steps for the patient's care. I recommended that the patient be seen by [place] [facility] in their outpatient clinic. I also recommended wound care. The patient is to follow-up with her primary care physician in 3 to 5 days. Follow up with: PRIMARY CARE, [Primary Care Provider] - 3-5 Days Prescriptions: Amoxicillin/Potassium Clav [Augmentin 500-125 Tablet] 1 each PO BID 7 Days #14 tab
[2021-10-10] MEDS: HALOPERIDOL LACTATE 5 MG/1 ML INJ IM PRN (17:58)
[2021-10-10] MEDS: HYDROmorphone 0.5 MG/0.5 ML INJ IV PRN (18:13)
[2021-10-11] MEDS: VANCOMYCIN/NS 1 GM/250 ML 1 GM/250 ML BAG IV SCH ×2 (02:44→12:06)
[2021-10-11] MEDS: HYDROmorphone 0.5 MG/0.5 ML INJ IV PRN (02:44)
[2021-10-11] MEDS: AMPICILLIN/SULBACTA 3GM/100ML 3 GM/100 ML BAG IV SCH ×2 (04:19→11:06)
[2021-10-11 06:08] LABS: BUN/Creatinine Ratio 10; Blood Urea Nitrogen 8 mg/dL (9-20); Calcium 9.1 mg/dL (8.4-10.2); Hemolysis Index 3
--- NOTE | 2021-10-11 07:35 | Progress Note ---
Assessment and Plan Assessment and plan: History of present illness: 61-year-old man with history of seizures had a fall about 3 to 4 weeks ago. Patient went to [facility] for treatment of his injury to the right ankle. He had a right ankle ulcer. With treatment by other hospital with dressings and antibiotics. Patient's right ankle wound has been worsening and swelling increasing in the right foot and also of the ankle and distal to lower extremity. No radiation of the pain. Pain is about 8 on a scale of 1-10. No discharge. But dark appearing wound with pain. Low-grade fever present. Blunt trauma for which 3 to 4 weeks ago. Patient is somewhat confused. No exacerbating or relieving factors. Pain is sharp and intermittent in nature. Hospital Course: 10/08/2021. Continue IV antibiotics. Follow-up cultures. X-rays revealed a comminuted fracture of the distal tibia and fibula definitely involving the mortise of the ankle. Surgery reports that it is difficult to discern if this is an open fracture but there is a definite chronic wound in the vicinity of the fracture. Consult orthopedics for further evaluation. Posterior splint immobilization with Betadine soaked gauze for dressing at this time. Try to obtain records from [facility] as soon as possible. 10/09/2021. Continue IV antibiotics. Blood cultures remain negative. Await orthopedics consult for comminuted fracture of the distal tibia and fibula. Continue wound care. No seizure activity. Continue Keppra 750 mg p.o. twice daily. H&H remained stable 10/10/2021: Patient was admitted for cellulitis, acute metabolic encephalopathy and right tibial fracture. Tibial fracture was sustained approximately 3 to 4 weeks ago. Patient was seen at [facility] by orthopedic surgery who splinted the patient and recommended outpatient follow-up. Unfortunately orthopedic surgery services not available at our facility at the current moment so a reevaluation was not possible this admission. He was seen and evaluated by general surgery who recommended posterior tibial splint. The patient has been treated with vancomycin and Unasyn for the the past 72 hours. Encephalopathy has resolved, vital signs are stable and patient appears to be at his baseline mentation (dementia apparent but answers questions appropriately). will be discharged home with a prescription for Augmentin. I discussed with the patient's sister Emily Peng and counseled her on the next steps for the patient's care. I recommended that the patient be seen by [facility] in their outpatient clinic. I also recommended wound care. The patient is to follow-up with her primary care physician in 3 to 5 days. patient sister contact: Freda Peng #[phone]. 10/11/2021: Per rn documentation, family was difficult to contact. Patient was not picked up last night. Medically clear for d/c. SW in contact with Freda Peng who stated they would fern picker patient today. posterior tibial splint not available, d/w RN to place rt leg in boot immobilizer. Assessment and Plan: #Sepsis POA #Right lower extremity Cellulitis #Right ankle ulcer #Right tibia distal fracture -was seen 4 weeks ago by [facility] #Acute metabolic encephalopathy (resolved) #Dementia- baseline confusion #History of Seizures #Anemia #Advance care planning Disease education conducted, care plan discussed, diagnoses discussed, prognosis discussed, patient is full code, patient acknowledges understanding and agree with care plan, discussed about patient clinical course and answered all questions to satisfaction. +30 minutes. +30 minutes. History Interval history: No acute complaints. Hospitalist Physical - Physical exam Narrative exam: General appearance: in no apparent distress, anxious - Head Head exam: Present: atraumatic, normocephalic - Eye Eye exam: Present: normal appearance, EOMI, other (Visual acuity is intact to finger counting in color perception at a close distance). Absent: nystagmus - ENT ENT exam: Present: normal orophraynx, mucous membranes dry, normal external ear exam - Neck Neck exam: Present: normal inspection, full ROM. Absent: tenderness, meningismus - Respiratory Respiratory exam: Present: respiratory distress, rhonchi. Absent: rales, decreased breath sounds - Cardiovascular Cardiovascular Exam: Present: regular rate, normal rhythm, normal heart sounds. Absent: bradycardia, tachycardia, irregular rhythm, systolic murmur, diastolic murmur, rubs, gallop - GI/Abdominal GI/Abdominal exam: Present: soft. Absent: distended, tenderness, guarding, rebound, rigid, pulsatile mass - Rectal Rectal exam: Present: deferred - Extremities Exam Extremities exam: Present: full ROM, tenderness (The right ankle is tender, and there is skin wound, on the lateral aspect of the malleolus, with possible necrotic tissue. There is no streaking.), pedal edema, other (2+ pulses noted in the bilateral upper and lower extremities. The r bilateral upper extremities and left lower extremity are nontender. The pelvis is stable). Absent: normal inspection, calf tenderness - Back Exam Back exam: Present: normal inspection. Absent: tenderness, CVA tenderness (R), CVA tenderness (L), paraspinal tenderness, vertebral tenderness - Neurological Exam Neurological exam: Present: altered (The patient is awake and alert to name and location. He does not know the year. He does not know the president.), other (There is no facial droop. The tongue is midline. EOMI. 5/5 strength in 4 extremities, sensation is intact to light touch in 4 extremities) - Psychiatric Psychiatric exam: Present: flat affect - Skin Skin exam: Present: warm, other (On the right anterior and lateral lower extremity, there is a wound that is approximately 10 cm x 5 cm. There is dry tissue, without redness, pus or streaking.) - Constitutional Vitals: Temp Pulse Resp BP Pulse Ox 100.2 F H 107 H 18 165/87 96 10/10/21 21:42 10/10/21 22:32 10/10/21 21:42 10/10/21 21:42 10/10/21 22:32 General appearance: Present: no acute distress, well-nourished HEART Score - HEART Score Troponin: Troponin T < 0.010 ng/mL (0.00-0.029) 10/07/21 12:41 Results - Labs CBC & Chem 7: 10/09/21 03:51 10/11/21 05:30 Labs: Laboratory Last Values WBC 6.9 K/mm3 (4.5-11.0) 10/09/21 03:51 RBC 3.98 M/mm3 (3.65-5.03) 10/09/21 03:51 Hgb 9.2 gm/dl (11.8-15.2) L 10/09/21 03:51 Hct 29.8 % (35.5-45.6) L 10/09/21 03:51 MCV 75 fl (84-94) L 10/09/21 03:51 MCH 23 pg (28-32) L 10/09/21 03:51 MCHC 31 % (32-34) L 10/09/21 03:51 RDW 21.8 % (13.2-15.2) H 10/09/21 03:51 Plt Count 294 K/mm3 (140-440) 10/09/21 03:51 Lymph % (Auto) 31.4 % (13.4-35.0) 10/09/21 03:51 [place] % (Auto) 12.2 % (0.0-7.3) H 10/09/21 03:51 Eos % (Auto) 1.1 % (0.0-4.3) 10/09/21 03:51 Baso % (Auto) 1.0 % (0.0-1.8) 10/09/21 03:51 Lymph # (Auto) 2.2 K/mm3 (1.2-5.4) 10/09/21 03:51 [place] # (Auto) 0.8 K/mm3 (0.0-0.8) 10/09/21 03:51 Eos # (Auto) 0.1 K/mm3 (0.0-0.4) 10/09/21 03:51 Baso # (Auto) 0.1 K/mm3 (0.0-0.1) 10/09/21 03:51 Add Manual Diff Complete 10/08/21 04:57 Total Counted 100 10/08/21 04:57 Seg Neutrophils % 54.3 % (40.0-70.0) 10/09/21 03:51 Seg Neuts % (Manual) 38.0 % (40.0-70.0) L 10/08/21 04:57 Band Neutrophils % 0 % 10/08/21 04:57 Lymphocytes % (Manual) 47.0 % (13.4-35.0) H 10/08/21 04:57 Reactive Lymphs % (Man) 0 % 10/08/21 04:57 Monocytes % (Manual) 12.0 % (0.0-7.3) H 10/08/21 04:57 Eosinophils % (Manual) 3.0 % (0.0-4.3) 10/08/21 04:57 Basophils % (Manual) 0 % (0.0-1.8) 10/08/21 04:57 Metamyelocytes % 0 % 10/08/21 04:57 Myelocytes % 0 % 10/08/21 04:57 Promyelocytes % 0 % 10/08/21 04:57 Blast Cells % 0 % 10/08/21 04:57 Nucleated RBC % Not Reportable 10/08/21 04:57 Seg Neutrophils # 3.8 K/mm3 (1.8-7.7) 10/09/21 03:51 Seg Neutrophils # Man 1.6 K/mm3 (1.8-7.7) L 10/08/21 04:57 Band Neutrophils # 0.0 K/mm3 10/08/21 04:57 Lymphocytes # (Manual) 1.9 K/mm3 (1.2-5.4) 10/08/21 04:57 Abs React Lymphs (Man) 0.0 K/mm3 10/08/21 04:57 Monocytes # (Manual) 0.5 K/mm3 (0.0-0.8) 10/08/21 04:57 Eosinophils # (Manual) 0.1 K/mm3 (0.0-0.4) 10/08/21 04:57 Basophils # (Manual) 0.0 K/mm3 (0.0-0.1) 10/08/21 04:57 Metamyelocytes # 0.0 K/mm3 10/08/21 04:57 Myelocytes # 0.0 K/mm3 10/08/21 04:57 Promyelocytes # 0.0 K/mm3 10/08/21 04:57 Blast Cells # 0.0 K/mm3 10/08/21 04:57 WBC Morphology Not Reportable 10/08/21 04:57 Hypersegmented Neuts Not Reportable 10/08/21 04:57 Hyposegmented Neuts Not Reportable 10/08/21 04:57 Hypogranular Neuts Not Reportable 10/08/21 04:57 Smudge Cells Not Reportable 10/08/21 04:57 Toxic Granulation Not Reportable 10/08/21 04:57 Toxic Vacuolation Not Reportable 10/08/21 04:57 Dohle Bodies Not Reportable 10/08/21 04:57 Pelger-Huet Anomaly Not Reportable 10/08/21 04:57 Hayley Rods Not Reportable 10/08/21 04:57 Platelet Estimate Consistent w auto 10/08/21 04:57 Clumped Platelets Not Reportable 10/08/21 04:57 Plt Clumps, EDTA Not Reportable 10/08/21 04:57 Large Platelets Not Reportable 10/08/21 04:57 Giant Platelets Not Reportable 10/08/21 04:57 Platelet Satelliting Not Reportable 10/08/21 04:57 Plt Morphology Comment Not Reportable 10/08/21 04:57 RBC Morphology Not Reportable 10/08/21 04:57 Dimorphic RBCs Not Reportable 10/08/21 04:57 Polychromasia Not Reportable 10/08/21 04:57 Hypochromasia 1+ 10/08/21 04:57 Poikilocytosis Not Reportable 10/08/21 04:57 Anisocytosis 1+ 10/08/21 04:57 Microcytosis Not Reportable 10/08/21 04:57 Macrocytosis Not Reportable 10/08/21 04:57 Spherocytes Not Reportable 10/08/21 04:57 Pappenheimer Bodies Not Reportable 10/08/21 04:57 Sickle Cells Not Reportable 10/08/21 04:57 Target Cells Rare 10/08/21 04:57 Tear Drop Cells Not Reportable 10/08/21 04:57 Ovalocytes Rare 10/08/21 04:57 Helmet Cells Not Reportable 10/08/21 04:57 Vill[place]ob[place] Bodies Not Reportable 10/08/21 04:57 [place] Rings Not Reportable 10/08/21 04:57 [place] Cells Not Reportable 10/08/21 04:57 Bite Cells Not Reportable 10/08/21 04:57 Crenated Cell Not Reportable 10/08/21 04:57 Elliptocytes Few 10/08/21 04:57 Acanthocytes (Spur) Rare 10/08/21 04:57 Rouleaux Not Reportable 10/08/21 04:57 Hemoglobin C Crystals Not Reportable 10/08/21 04:57 Schistocytes Not Reportable 10/08/21 04:57 Malaria parasites Not Reportable 10/08/21 04:57 ESR 44 mm/Hr (0-20) 10/07/21 12:41 Dev Bodies Not Reportable 10/08/21 04:57 Hem Pathologist Commnt No 10/08/21 04:57 PT 14.7 Sec. (12.2-14.9) 10/07/21 12:41 INR 1.01 (0.87-1.13) 10/07/21 12:41 APTT 35.0 Sec. (24.2-36.6) 10/07/21 12:41 Sodium 138 mmol/L (137-145) 10/11/21 05:30 Potassium 3.6 mmol/L (3.6-5.0) 10/11/21 05:30 Chloride 103.9 mmol/L (98-107) 10/11/21 05:30 Carbon Dioxide 19 mmol/L (22-30) L 10/11/21 05:30 Anion Gap 19 mmol/L 10/11/21 05:30 BUN 8 mg/dL (9-20) L 10/11/21 05:30 Creatinine 0.8 mg/dL (0.8-1.3) 10/11/21 05:30 Estimated GFR > 60 ml/min 10/11/21 05:30 BUN/Creatinine Ratio 10 % 10/11/21 05:30 Glucose 106 mg/dL (75-100) H 10/11/21 05:30 Lactic Acid 1.40 mmol/L (0.7-2.0) 10/07/21 12:41 Calcium 9.1 mg/dL (8.4-10.2) 10/11/21 05:30 Iron 33 ug/dL (49-181) L 10/08/21 04:57 TIBC 413 mcg/dL (250-450) 10/08/21 04:57 % Saturation 7.99 % 10/08/21 04:57 Transferrin 341 mg/dl (180-329) H 10/08/21 04:57 Total Bilirubin 0.30 mg/dL (0.1-1.2) 10/08/21 04:57 AST 19 units/L (5-40) 10/08/21 04:57 ALT 10 units/L (7-56) 10/08/21 04:57 Alkaline Phosphatase 73 units/L (35-129) 10/08/21 04:57 Ammonia 19.0 umol/L (25-60) L 10/07/21 12:41 Total Creatine Kinase 377 units/L (55-170) H 10/07/21 12:41 Troponin T < 0.010 ng/mL (0.00-0.029) 10/07/21 12:41 C-Reactive Protein < 0.03 mg/dL (0.00-1.30) 10/07/21 12:41 Total Protein 7.4 g/dL (6.3-8.2) 10/08/21 04:57 Albumin 3.7 g/dL (3.9-5) L 10/08/21 04:57 Albumin/Globulin Ratio 1.0 % 10/08/21 04:57 Vitamin B12 791.0 pg/mL (211-911) 10/08/21 04:57 TSH 0.692 mlU/mL (0.270-4.200) 10/07/21 12:41 Urine Color Yellow (Yellow) 10/07/21 12:16 Urine Turbidity Clear (Clear) 10/07/21 12:16 Urine pH 6.0 (5.0-7.0) 10/07/21 12:16 Ur Specific [place] 1.018 (1.003-1.030) 10/07/21 12:16 Urine Protein <15 mg/dl mg/dL (Negative) 10/07/21 12:16 Urine Glucose (UA) Neg mg/dL (Negative) 10/07/21 12:16 Urine Ketones Neg mg/dL (Negative) 10/07/21 12:16 Urine Blood Lg (Negative) 10/07/21 12:16 Urine Nitrite Neg (Negative) 10/07/21 12:16 Urine Bilirubin Neg (Negative) 10/07/21 12:16 Urine Urobilinogen < 2.0 mg/dL (<2.0) 10/07/21 12:16 Ur Leukocyte Esterase Neg (Negative) 10/07/21 12:16 Urine WBC (Auto) 0.0 /HPF (0.0-6.0) 10/07/21 12:16 Urine RBC (Auto) < 1.0 /HPF (0.0-6.0) 10/07/21 12:16 Vancomycin Trough 4.0 ug/mL (5.0-20.0) L 10/10/21 05:01 Salicylates < 0.3 mg/dL (2.8-20.0) L 10/07/21 12:41 Urine Opiates Screen Negative 10/07/21 12:16 Urine Methadone Screen Negative 10/07/21 12:16 Acetaminophen 5.0 ug/mL (10.0-30.0) L 10/07/21 12:41 Ur Barbiturates Screen Negative 10/07/21 12:16 Ur Phencyclidine Scrn Negative 10/07/21 12:16 Ur Amphetamines Screen Negative 10/07/21 12:16 U Benzodiazepines Scrn Negative 10/07/21 12:16 Urine Cocaine Screen Negative 10/07/21 12:16 U Marijuana (THC) Screen Negative 10/07/21 12:16 Drugs of Abuse Note Disclamer 10/07/21 12:16 Plasma/Serum Alcohol < 0.01 % (0-0.07) 10/07/21 12:41 Coronavirus (PCR) Negative (Negative) 10/08/21 09:42 Microbiology: Microbiology 10/07/21 12:41 Peripheral/Venous Blood Culture - Preliminary NO GROWTH AFTER 72 HOURS 10/07/21 12:41 Peripheral/Venous Blood Culture - Preliminary NO GROWTH AFTER 72 HOURS Hodges/IV: Voiding Method Condom Catheter Active Medications - Current Medications Current Medications: Generic Name Dose Route Start Last Admin Trade Name Freq PRN Reason Stop Dose Admin Acetaminophen 650 mg 10/07/21 19:26 10/10/21 12:05 Acetaminophen 325 Mg Tab PO 650 mg Q4H PRN Administration Pain MILD(1-3)/Fever >100.5/MACDONALD Famotidine 20 mg 10/07/21 22:00 10/10/21 22:25 Famotidine 20 Mg Tab PO 20 mg BID FALLON Administration Haloperidol Lactate 5 mg 10/07/21 14:21 10/10/21 17:58 Haloperidol Lactate 5 Mg/1 Ml Inj IM 5 mg Q6HR PRN Administration Agitation Heparin Sodium (Porcine) 5,000 unit 10/07/21 22:00 10/10/21 22:27 Heparin 5,000 Unit/1 Ml Vial SUB-Q 5,000 unit Q12HR FALLON Administration Hydromorphone HCl 0.5 mg 10/07/21 19:26 10/11/21 02:44 Hydromorphone 0.5 Mg/0.5 Ml Inj IV 0.5 mg Q3H PRN Administration Pain , Severe (7-10) Sodium Chloride 1,000 mls @ 75 mls/hr 10/07/21 19:30 10/10/21 05:43 Nacl 0.9% 1000 Ml IV 75 mls/hr DIRECT F[place]ON Administration Ampicillin Sodium/Sulbactam Sodium 3 gm in 100 mls @ 100 mls/hr 10/07/21 22:00 10/11/21 04:19 Unasyn/Ns 3 Gm/100 Ml IV 100 mls/hr Q6H F[place]ON Administration Protocol Vancomycin HCl 1 gm in 250 mls @ 250 mls/hr 10/10/21 10:00 10/11/21 02:44 Vancomycin/Ns 1 Gm/250 Ml IV 250 mls/hr Q8H F[place]ON Administration Levetiracetam 750 mg 10/07/21 22:00 10/10/21 22:26 Levetiracetam 500 Mg Tab PO 750 mg BID FALLON Administration Lorazepam 2 mg 10/07/21 14:21 10/10/21 22:17 Lorazepam 2 Mg/Ml Vial IM 2 mg Q4HR PRN Administration Agitation Morphine Sulfate 2 mg 10/07/21 19:26 10/09/21 18:21 Morphine 2 Mg/1 Ml Inj IV 2 mg Q4H PRN Administration Pain, Moderate (4-6) Ondansetron HCl 4 mg 10/07/21 19:26 Ondansetron 4 Mg/2 Ml Inj IV Q8H PRN Nausea And Vomiting Sodium Chloride 10 ml 10/07/21 22:00 10/10/21 22:26 Sodium Chloride 0.9% 10 Ml Flush Syringe IV 10 ml BID F[place]ON Administration Sodium Chloride 10 ml 10/07/21 19:26 Sodium Chloride 0.9% 10 Ml Flush Syringe IV PRN PRN LINE FLUSH Nutrition/Malnutrition Assess - Dietary Evaluation Nutrition/Malnutrition Findings: Nutrition Notes Start: 10/08/21 13:29 Freq: Status: Active Protocol: Document 10/09/21 12:09 ERLINDA (Rec: 10/09/21 12:36 [email or web address]) Nutrition Notes Initial or Follow up Reassessment Current Diagnosis Sepsis Other Pertinent Diagnosis R-Tibia/Fibula Fracture, R- Ankle Cellulitis/Ulcer, Toxic Metabolic Encephal Current Diet Refular Diet + D Suppl (since L 10/08). Labs/Tests 10/09: CO2 21. Pertinent Medications 10/09: Nutritionally unremarkable. Height 5 ft 8 in Weight 69.2 kg [place] Body Weight (kg) 70.00 BMI 23.1 Weight change and time frame No body weight xhange reported in 1 day. Weight Status Appropriate Subjective/Other Information RD consult for routine F/U on Dietary Advancement. Pt's PO intake of meals has been Poor (25%), according to ADL notes. I will continue Dietary Supplementation as is until F/ U reassessment. Pt is on Room Air, O2 saturattion @ 96%, according to Physical Assessment History notes. Pt presents a R-Ankle Cellulitis/Ulcer, secondary to fall 3 to 4 weeks ago, according to Physical Assessment History notes and Progress notes. Pt is awaiting for Orthopedics consult, according to Progress notes. Percent of energy/protein needs met: Prescribed Regular Diet provides for energy/protein needs (2,289 Kcal/89 g) during LOS; additionally, Dietary Supplements will support wound healing processes with 350 Kcal and 20 g of protein. Burn Absent Trauma Present GI Symptoms None Food Allergy No Skin Integrity/Comment R-Ankle Cellulitis/Ulcer. Current % PO Poor (25-49%) Minimum of two criteria No Fluid Accumulation N/A Reduced Rock Picker Strength N/A (non-severe) Protein-Calorie Malnutrition N\A #1 Nutrition Diagnosis Increased nutrient needs ( specify in comment below) Comments: Protein to support wound healing processes. Diagnosis Progress(for reassessment Continues documentation) Is patient on ventilator? No Is Patient Ambulatory and/or Out of Bed No REE-([facility]-confined to bed) [phone] Calculation Used for Recommendations [facility] Additional Notes Protein: 1.5-2 g/Kg ABW; 104- 138 g/day. Fluids: 1 ml/Kcal, or as per MD. Nutrition Intervention Change Diet Order: Continue Regular Diet, as tolerated. Add Supplement/Snack (indicate name/kcal Continue 8 fl oz Ensure Enlive /protein ) ; Once a Day. Provides kCal: 350 Provides Protein (gm) 20 Goal #1 Support, through dietary supplementation, wound healing processes during LOS. Goal #2 Adjust the dietary intervention to better serve Pt's needs and clinical conditions during LOS. Follow-Up By: 10/12/21 Additional Comments Continue monitoring food tolerance, %PO intake of meals and ONS, and BM.
[2021-10-11] MEDS: levETIRAcetam 500 MG TAB PO SCH (09:32)
[2021-10-11] MEDS: HEPARIN 5,000 UNIT/1 ML VIAL SUB-Q SCH (09:33)
[2021-10-11] MEDS: FAMOTIDINE 20 MG TAB PO SCH (09:33)
[2021-10-11 18:32] VITALS: BP 143/83
== END 2021-10-11 17:30 | disposition home or self-care (01) | DRG 871 ==
LOC: ED 11:14 → 3A 23:11
PROVIDERS: ADMIT Internal Medicine; ATTEND Internal Medicine
DX: A41.9 Sepsis, unspecified organism (principal); G92.8 Other toxic encephalopathy; L03.115 Cellulitis of right lower limb; L97.319 Non-pressure chronic ulcer of right ankle with unspecified severity; F17.210 Nicotine dependence, cigarettes, uncomplicated; D64.9 Anemia, unspecified; G40.909 Epilepsy, unspecified, not intractable, without status epilepticus; Z20.822 Contact with and (suspected) exposure to COVID-19; S82.301A Unspecified fracture of lower end of right tibia, initial encounter for closed fracture; Y93.89 Activity, other specified; Y92.89 Other specified places as the place of occurrence of the external cause; Y99.8 Other external cause status
CPT/HCPCS: 36415; 70450; 71045; 80048; 80053; 80202; 80307; 80320; 81001; 82140; 82550; 82607; 82747; 83550; 84443; 84484; 85007; 85025; 85610; 85652; 85730; 86140; 87040; 87076; 87086; 87186; 93005; 94644; G0378; G0480; J0295; J0690; J1170; J1630; J1644; J1953; J2060; J2270; J3010; J3370; J7030; J7040; U0003